=== PATIENT | male | born 1980 | race Caucasian/White ===

== ENCOUNTER → 2018-11-12 | Outpatient (CLI) | payer MEDICARE, MEDICAID ==
[~2018-11-12] MED LIST: HCT25T PO; HYDR-757 PO; TESTOSTERONE INJECT
--- NOTE | 2018-11-12 15:20 | Diagnostic Imaging Report ---
PROCEDURE: CT sinuses without contrast TECHNIQUE: Multiple contiguous axial images were obtained through the sinuses without the use of intravenous contrast. Coronal and sagittal reformations were then performed. Auto Exposure Controls were utilized during the CT exam to meet ALARA standards for radiation dose reduction. INDICATION: Left nasal mass. COMPARISON: No prior studies are available for comparison. FINDINGS: The frontal sinus is clear. Ethmoid air cells and sphenoid sinus appear clear. Bilateral maxillary sinuses are clear. No mucosal thickening or air-fluid levels are seen. Mastoids are well aerated. Nasal septum appears to be midline. There is soft tissue mass in the left anterior nasal cavity measuring approximately 19 mm x 9 mm x 23 mm. No other abnormalities are detected. IMPRESSION: Left anterior nasal soft tissue mass. No other significant abnormality is detected. Dictated by: Dictated on workstation # [id number]
== END ==
LOC: RAD 14:11
PROVIDERS: ATTEND Otolaryngology Otolaryngology/Facial Plastic Surgery
DX: J34.89 Other specified disorders of nose and nasal sinuses (principal)
CPT/HCPCS: 70486

== ENCOUNTER 2018-11-23 13:04 | Outpatient (CLI) | payer MEDICARE, MEDICAID ==
[~2018-11-23] VITALS: Ht 154.9 cm; Wt 127.7 kg
[2018-11-23] MEDS ORDERED: HYDR25TA4 PO (13:21)
[2018-11-23] MEDS ORDERED: PARO20TA5 PO (13:21)
[2018-11-23] MEDS ORDERED: MONT10TA24 PO (13:21)
[2018-11-23] MEDS ORDERED: TEST100V3 IM (13:21)
[2018-11-23 13:27] VITALS: BP 158/96
[2018-11-23 14:06] LABS: BASOPHILS # (AUTO) 0.1 10^3/uL (0.0-0.1); BASOPHILS % (AUTO) 1 % (0-10); EOSINOPHILS # (AUTO) 0.4 10^3/uL (0.0-0.3); EOSINOPHILS % (AUTO) 2 % (0-10); HEMATOCRIT 46 % (40-54); HEMOGLOBIN 15.3 G/DL (13.3-17.7); LYMPHOCYTES # (AUTO) 3.1 X 10^3 (1.0-4.0); LYMPHOCYTES % (AUTO) 20 % (12-44); MEAN CORPUSCULAR HEMOGLOBIN 27 PG (25-34); MEAN CORPUSCULAR HGB CONC 33 G/DL (32-36); MEAN CORPUSCULAR VOLUME 81 FL (80-99); MEAN PLATELET VOLUME 10.1 FL (7.4-10.4); MONOCYTES # (AUTO) 1.5 X 10^3 (0.0-1.0); MONOCYTES % (AUTO) 10 % (0-12); NEUTROPHILS # (AUTO) 10.3 X 10^3 (1.8-7.8); NEUTROPHILS % (AUTO) 67 % (42-75); PLATELET COUNT 289 10^3/uL (130-400); RED CELL DISTRIBUTION WIDTH 16.8 % (10.0-14.5); WHITE BLOOD COUNT 15.3 10^3/uL (4.3-11.0)
[2018-11-23 14:23] LABS: BUN/CREATININE RATIO 11; CALCIUM 9.7 MG/DL (8.5-10.1); CARBON DIOXIDE 20 MMOL/L (21-32); CHLORIDE 101 MMOL/L (98-107); CREATININE SERUM 0.74 MG/DL (0.60-1.30); GFR ESTIMATED > 60; GLUCOSE 92 MG/DL (70-105); POTASSIUM 3.9 MMOL/L (3.6-5.0); SODIUM 134 MMOL/L (135-145)
[2018-11-23 14:39] LABS: ANISOCYTOSIS SLIGHT; BAND NEUTROPHILS 4 %; BASOPHILS % (MANUAL) 0 %; EOSINOPHILS % (MANUAL) 3 %; LYMPHOCYTES % (MANUAL) 18 %; MONOCYTES % (MANUAL) 5 %; NEUTROPHILS % (MANUAL) 70 %
== END 2018-11-23 15:20 | disposition home or self-care (01) ==
LOC: PREOP 13:04
PROVIDERS: ATTEND Otolaryngology Otolaryngology/Facial Plastic Surgery
DX: Z01.810 Encounter for preprocedural cardiovascular examination (principal); Z01.812 Encounter for preprocedural laboratory examination; J34.89 Other specified disorders of nose and nasal sinuses
CPT/HCPCS: 36415; 80048; 85007; 85027; 87081; 93005

== ENCOUNTER 2018-11-27 06:35 | Day surgery (SDC) | payer MEDICARE, MEDICAID ==
[2018-11-27] VITALS (11 sets, daily range): BP systolic 140–186; BP diastolic 64–100
[~2018-11-27] VITALS: Ht 154.9 cm; Wt 127.7 kg
[~2018-11-27 06:35] MED LIST changes: +HYDR25TA4 PO; +MONT10TA24 PO; +PARO20TA5 PO; +TEST100V3 IM
--- OUTSIDE RECORDS SUMMARY | 2018-11-27 06:40 | XMS REPORT | Clinical Summary ---
Author Author [facility] Organization [facility] Address Unknown Phone Unavailable Care Team Providers Care Offal Roller Name Role Phone Uche Ortiz MD Unavailable No Pcp, Na PCP Unavailable Source Comments Some departments are not documenting in the electronic medical record. If you d o not see the information that you expected, contact Release of Information in [facility] Health Information Management department at [phone] for further assistan ce in locating additional records.[facility] Allergies Not on File Medications Not on file Active Problems Not on file Social History Date Tobacco Use Types Packs/Day Years Used Never Assessed Sex Assigned at Date Recorded Not on file Industry Job Start Date Occupation Not on file Not on file Not on file Travel End Travel History Travel Start No recent travel history available. Last Filed Vital Signs Not on file Plan of Treatment Health Maintenance Due Date Last Done Comments PHYSICAL (COMPREHENSIVE) 08/09/1987 EXAM HIV SCREENING 08/09/1995 DTAP/TDAP VACCINES (1998 Tdap) INFLUENZA VACCINE 01/26/2019 Results Not on filefrom Last 3 Months Advance Directives Patient Regulatory Process Manager Explanation Type Date Recorded Advance 02/14/2015 1:08 PM Directive/DPOA
--- OUTSIDE RECORDS SUMMARY | 2018-11-27 06:40 | XMS REPORT ---
Author Author Migration, Doctor Organization [facility] Address Unknown Phone Unavailable Care Team Providers Care Guide Changer Name Role Phone Migration, Doctor Unavailable Unavailable PROBLEMS Type Condition ICD9-CM Code ITL87-GQ Code Onset Dates Condition Status SNOMED Code Problem Morbid obesity due to excess calories E66.01 Active 194835013 Problem Allergic rhinitis, unspecified allergic rhinitis trigger, unspecified rhinitis seasonality J30.9 Active 05484920 Problem Hypogonadism in male E29.1 Active 67364353 Problem Irritable bowel syndrome with both constipation and diarrhea K58.2 Active 08045783 Problem Major depressive disorder with single episode, in full remission F32.5 Active 37529374 Problem Family history of diabetes mellitus Z83.3 Active 074784114 Problem 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 425648364344692 Problem Morbid obesity E66.01 Active 948271040 Problem Mild major depression, single episode F32.0 Active 37237839 ALLERGIES No Information ENCOUNTERS Encounter Location Date Diagnosis [place] [id number] [place] [address] Jul, Encounter for Medicare annual wellness exam Z00.00 ; Morbid obesity due to excess calories E66.01 ; Major depressive disorder with single episode, in full remission F32.5 and Morbid obesity E66.01 [place] [id number] [place] [address] Apr, Irritable bowel syndrome with both constipation and diarrhea K58.2 [place] [id number] [address] Mar, Actinic keratoses L57.0 [place] [id number] [place] [address] Feb, Seborrheic keratoses L82.1 [place] [id number] [place] [address] Jan, Irritable bowel syndrome with both constipation and diarrhea K58.2 ; Anal fissure K60.2 ; Encounter for immunization Z23 ; Major depressive disorder with single episode, in full remission F32.5 and Seborrheic keratoses L82.1 [facility] [id number] [id number] August, Family history of diabetes mellitus Z83.3 ; Family history of hypothyroidism Z83.49 ; Morbid obesity due to excess calories E66.01 and Hypogonadism in male E29.1 [place] [id number] [place] [address] August, Family history of diabetes mellitus Z83.3 [place] [id number] [place] [address] August, Family history of diabetes mellitus Z83.3 ; Hemangioma D18.00 ; Skin tag, acquired L91.8 ; Family history of hypothyroidism Z83.49 ; Morbid obesity due to excess calories E66.01 ; Hypogonadism in male E29.1 and Morbid obesity E66.01 [place] [id number] [place] [address] Feb, [place] [id number] [place] [address] Feb, 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 ; Morbid obesity due to excess calories E66.01 ; Family history of diabetes mellitus Z83.3 and Encounter for immunization Z23 [facility] [address] [place] [id number] Dec, Encounter for dental examination Z01.20 [facility] [id number] [place] [address] Sep, Facial nerve palsy G51.0 and Viral pharyngitis J02.9 [facility] [id number] [id number] August, Family history of diabetes mellitus Z83.3 ; Morbid obesity due to excess calories E66.01 ; Hypogonadism in male E29.1 and Pharyngitis due to other organism J02.8 [facility] [id number] [address] 11 August, 2017 Family history of diabetes mellitus Z83.3 ; Morbid obesity due to excess calories E66.01 ; Hypogonadism in male E29.1 and Pharyngitis due to other organism J02.8 [facility] [address] [id number] [id number] August, Dental examination Z01.20 [facility] [address] [facility] [id number][place] [id number] Jun, Dental examination Z01.20 [facility] [id number] [address] May, [facility] [address] [place] [address] [id number][place] [id number] May, Dental examination Z01.20 [facility] [id number] [address] Jan, [facility] [id number], [place] [id number] Jan, Hypogonadism in male E29.1 [facility] [id number] [address] Jan, Allergic rhinitis, unspecified allergic rhinitis trigger, unspecified rhinitis seasonality J30.9 ; Encounter for immunization Z23 and Hypogonadism in male E29.1 [facility] [address] [id number][place] [id number] Oct, Dental examination Z01.20 [facility] [id number] [place] [address] Jul, [facility] [id number] [place] [address] Jul, Allergic rhinitis J30.9 [facility] [id number] [place] [address] Jun, Allergic rhinitis J30.9 ; Family history of diabetes mellitus Z83.3 ; Family history of hypothyroidism Z83.49 and Hypogonadism in male E29.1 [facility] [address] [address] 12 May, 2015 Encounter for immunization Z23 [facility] [address] [facility] [id number][place] [id number] Mar, Encounter for dental examination and cleaning without abnormal findings Z01.20 and Dental examination Z01.20 [facility] [address] [address] Jan, [place] [id number] [place] [address] Jan, Encounter for immunization Z23 ; Family history of hypothyroidism Z83.49 ; Hypogonadism in male E29.1 and Family history of diabetes mellitus Z83.3 [facility] [id number] [place] [address] Jan, [facility] [id number] [place] [address] Dec, [address] [id number][place] [id number] August, Dental examination V72.2 [facility] [address] [address] Jul, [facility] [id number] [place] [address] Jul, [facility] [id number] [address] May, [address] [id number] May, [facility] [id number] [place] [address] May, [facility] [id number] [place] [address] May, [facility] [address] [id number] [place] [address] May, [facility] [place] [facility] [address] [facility] [id number] [place] [address] May, [facility] [address] [id number][place] [id number] May, [facility] [place] [facility] [address] [facility] [id number] [place] [address] May, [facility] [place] [facility] [address] [facility] [id number] [place] [address] Apr, [facility] [place] [facility] [address] [facility] [id number] [place] [address] Apr, [facility] [address] [facility] [id number] [place] [address] Apr, [facility] [place] [facility] [address] [facility] [id number] [place] [address] Jan, [facility] [place] [facility] [address] [facility] [id number] [place] [address] Jan, [facility] [place] [facility] [address] [facility] [id number] [place] [address] Oct, [facility] [place] [facility] [address] [facility] [id number] [place] [address] Oct, [facility] [place] [facility] [address] [facility] [id number] [address] Jul, [facility] [place] [facility] [address] [id number] [place] [address] Jul, [facility] [place] [facility] [address] [facility] [id number] [place] [address] Jul, [facility] [place] [facility] [address] [facility] [id number] [address] May, [facility] [place] [facility] [address] [id number] [place] [address] May, [facility] [address] [id number] [place] [address] Apr, [facility] [address] [id number] [place] [address] Apr, [facility] [address] [id number] [place] [address] Apr, [facility] [address] [id number] [place] [address] Apr, [facility] [address] [id number] [place] [address] Apr, [facility] [address] [id number][place] [id number] Mar, [facility] [address] [id number] [place] [address] Mar, [facility] [address] [id number][place] [id number] Mar, [facility] [address] [id number] [place] [address] Mar, [facility] [address] [id number] [place] [address] 16 Dec, 2012 [facility] [address] [id number] [place] [address] 13 Dec, 2012 [facility] [address] [id number] [place] [address] 10 Dec, 2012 [facility] [place] [facility] [address] [id number] [place] [address] 04 Jun, 2012 [facility] [place] [facility] [address] [id number] [place] [address] May, [facility] [address] [id number] [place] [address] May, [facility] [address] [id number] [address] May, [facility] [address] [id number] [place] [address] May, [facility] [id number] [place] [address] May, [facility] [address] [facility] [id number] [address] Mar, [facility] [address] [facility] [id number] [place] [address] Mar, [facility] [address] [id number][place] [id number] Jan, [facility] [id number] [address] Jan, [facility] [address] [id number] [address] Oct, [facility] [address] [id number] [address] Sep, [facility] [address] [id number] [address] Sep, [facility] [address] [id number] [address] Mar, [facility] [place] [facility] [address] [facility] [id number] [address] Mar, [facility] [place] [facility] [address] [facility] [id number], [place] [address] Feb, [facility] [place] [facility] [address] [facility] [id number] [address] Feb, [facility] [place] [facility] [address] [facility] [id number], [place] [address] Jan, [facility] [place] [facility] [address] [facility] [id number], [place] [address] Apr, [facility] [address] [id number] [address] Feb, [facility] [address] [id number] [address] Feb, [facility] [address] [id number] [address] Feb, [facility] [address] [id number] [address] Feb, [facility] [address] [id number] [address] Jan, IMMUNIZATIONS No Known Immunizations SOCIAL HISTORY Never Assessed REASON FOR VISIT [facility] VITAL SIGNS MEDICATIONS Unknown Medications RESULTS No Results PROCEDURES No Known procedures INSTRUCTIONS MEDICATIONS ADMINISTERED No Known Medications MEDICAL (GENERAL) HISTORY Type Description Date Medical History Prader- Willi Syndrome Medical History hypertension Surgical History tonsillectomy Surgical History appendectomy Surgical History testicle removal Surgical History dental surgery Hospitalization History surgeries Hospitalization History colon blockage
--- OUTSIDE RECORDS SUMMARY | 2018-11-27 06:40 | XMS REPORT ---
Author Author Migration, Doctor Organization [facility] Address Unknown Phone Unavailable Care Team Providers Care Box Press Operator Name Role Phone Migration, Doctor Unavailable Unavailable PROBLEMS Type Condition ICD9-CM Code [id number] Code Onset Dates Condition Status SNOMED Code Problem Morbid obesity due to excess calories E66.01 Active 619740763 Problem Allergic rhinitis, unspecified allergic rhinitis trigger, unspecified rhinitis seasonality J30.9 Active 97988190 Problem Hypogonadism in male E29.1 Active 71844938 Problem Irritable bowel syndrome with both constipation and diarrhea K58.2 Active 77432866 Problem Major depressive disorder with single episode, in full remission F32.5 Active 73884868 Problem Family history of diabetes mellitus Z83.3 Active 093762629 Problem 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 874348976613755 Problem Morbid obesity E66.01 Active 019041641 Problem Mild major depression, single episode F32.0 Active 49202631 ALLERGIES No Information ENCOUNTERS Encounter Location Date Diagnosis [place] [id number] [place] [address] August, Irritable bowel syndrome with both constipation and diarrhea K58.2 [place] [address] [place] [address] Jul, Encounter for Medicare annual wellness exam Z00.00 ; Morbid obesity due to excess calories E66.01 ; Major depressive disorder with single episode, in full remission F32.5 and Morbid obesity E66.01 [place] [address], [place] [address] Apr, Irritable bowel syndrome with both constipation and diarrhea K58.2 [facility] [address] [place] [id number] [place] [address] Mar, Actinic keratoses L57.0 [place] [address] [place] [id number] [place] [address] Feb, Seborrheic keratoses L82.1 [place] [address] [place] [id number] [place] [address] Jan, Irritable bowel syndrome with both constipation and diarrhea K58.2 ; Anal fissure K60.2 ; Encounter for immunization Z23 ; Major depressive disorder with single episode, in full remission F32.5 and Seborrheic keratoses L82.1 [facility] [id number] [place] [id number] August, Family history of diabetes mellitus Z83.3 ; Family history of hypothyroidism Z83.49 ; Morbid obesity due to excess calories E66.01 and Hypogonadism in male E29.1 [place] [address] [address] August, Family history of diabetes mellitus Z83.[address] [address] August, Family history of diabetes mellitus Z83.3 ; Hemangioma D18.00 ; Skin tag, acquired L91.8 ; Family history of hypothyroidism Z83.49 ; Morbid obesity due to excess calories E66.01 ; Hypogonadism in male E29.1 and Morbid obesity E66.01 [place] [address] [place] [id number] [place] [address] Feb, [place] [address] [address] Feb, 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1 and Pharyngitis due to other organism J02.8 [facility] [address], [place] [address] August, Family history of diabetes mellitus Z83.3 ; Morbid obesity due to excess calories E66.01 ; Hypogonadism in male E29.1 and Pharyngitis due to other organism J02.8 [place] [address] [facility] [address] [id number] [id number] August, Dental examination Z01.20 [facility] [id number] [id number] Jun, Dental examination Z01.20 [facility] [address], [place] [address] May, [address] [id number] [id number] May, Dental examination Z01.20 [facility] [address], [place] [address] Jan, [facility] [address] [id number] [id number] Jan, Hypogonadism in male E29.1 [facility] [address], [place] [address] Jan, Allergic rhinitis, unspecified allergic rhinitis trigger, unspecified rhinitis seasonality J30.9 ; Encounter for immunization Z23 and Hypogonadism in male E29.1 [place] [address] [facility] [id number][place] [id number] Oct, Dental examination Z01.20 [facility] [address], [place] [address] Jul, [facility] [address] [address] [id number] [place] [address] Jul, Allergic rhinitis J30.9 [facility] [address] [place] [address] Jun, Allergic rhinitis J30.9 ; Family history of diabetes mellitus Z83.3 ; Family history of hypothyroidism Z83.49 and Hypogonadism in male E29.1 [place] [address] [place] [id number] [place] [address] May, Encounter for immunization Z23 [address] [id number] [place] [id number] Mar, Encounter for dental examination and cleaning without abnormal findings Z01.20 and Dental examination Z01.20 [place] [address] [place] [id number] [place] [address] Jan, [place] [address] [place] [id number] [place] [address] Jan, Encounter for immunization Z23 ; Family history of hypothyroidism Z83.49 ; Hypogonadism in male E29.1 and Family history of diabetes mellitus Z83.3 [place] [address] [place] [id number] [place] [address] Jan, [place] [address] [place] [address] Dec, [id number] [place] [id number] August, Dental examination V72.2 [place] [address] [place] [address] Jul, [place] [address] [place] [id number] [place] [address] Jul, [facility] [address] [place] [address] May, [place] [id number] [place] [id number] May, [facility] [place] [facility] [address] [id number] [place] [address] May, [facility] [place] [facility] [address] [id number] [place] [address] May, [facility] [place] [facility] [address] [id number] [place] [address] May, [facility] [address] [id number] [place] [address] May, [facility] [address] [id number] [place] [id number] May, [facility] [address] [id number] [place] [address] May, [facility] [address] [facility] [id number] [place] [address] Apr, [facility] [address] [id number] [place] [address] Apr, [facility] [place] [facility] [address] [id number] [place] [address] Apr, [facility] [address] [facility] [id number] [place] [address] Jan, [facility] [place] [facility] [address] [id number] [place] [address] Jan, [facility] [place] [facility] [address] [id number], [place] [address] Oct, [facility] [place] [facility] [address] [id number] [place] [address] Oct, [facility] [place] [facility] [address] [id number] [place] [address] Jul, [facility] [place] [facility] [address] [id number] [place] [address] Jul, [facility] [place] [facility] [address] [id number], [place] [address] Jul, [facility] [place] [facility] [address] [id number] [place] [address] May, [facility] [place] [facility] [address] [id number], [place] [address] May, [facility] [place] [facility] [address] [id number] [place] [address] Apr, [facility] [place] [facility] [address] [id number], [place] [address] Apr, [facility] [place] [facility] [address] [id number] [place] [address] Apr, [facility] [place] [facility] [address] [id number], [place] [address] Apr, [facility] [address] [id number], [place] [address] Apr, [facility] [address] [facility] [id number][place] [id number] Mar, [facility] [address] [id number], [place] [address] Mar, [facility] [address] [facility] [id number][place] [id number] Mar, [facility] [place] [facility] [address] [id number], [place] [address] Mar, [facility] [place] [facility] [address] [id number], [place] [address] 16 Dec, 2012 [facility] [place] [facility] [address] [id number], [place] [address] 13 Dec, 2012 [facility] [place] [facility] [address] [id number], [place] [address] 10 Dec, 2012 [facility] [place] [facility] [address] [id number], [place] [address] 04 Jun, 2012 [facility] [place] [facility] [address] [id number], [place] [address] May, [facility] [address] [id number] [place] [address] May, [facility] [address] [place] [id number] [place] [address] May, [facility] [address] [facility] [id number] [place] [address] May, [facility] [place] [facility] [address] [place] [id number] [place] [address] May, [facility] [address] [place] [address] [id number] [place] [address] Mar, [facility] [address] [place] [address] Mar, [facility] [place] [id number] [id number] Jan, [facility] [address], [place] [address] Jan, [facility] [address] [place] [address] Oct, [facility] [address] [place] [id number], [place] [address] Sep, [facility] [address] [place] [address] [id number], [place] [address] Sep, [facility] [place] [facility] [address] [place] [address] [id number], [place] [address] Mar, [facility] [place] [facility] [address] [place] [address] [id number] [place] [address] Mar, [facility] [place] [facility] [address] [place] [address] [id number], [place] [address] Feb, [facility] [place] [facility] [address] [place] [address] [id number], [place] [address] Feb, [facility] [place] [facility] [address] [place] [id number], [place] [address] Jan, [facility] [address] [place] [address] [id number], [place] [address] Apr, [facility] [address], [place] [address] Feb, [facility] [address], [place] [address] Feb, [facility] [address], [place] [address] Feb, [facility] [address] [place] [id number], [place] [address] Feb, [facility] [address] [place] [address] [id number], [place] [address] Jan, IMMUNIZATIONS No Known Immunizations SOCIAL HISTORY Never Assessed REASON FOR VISIT [facility] [place] VITAL SIGNS MEDICATIONS Unknown Medications RESULTS No Results PROCEDURES No Known procedures INSTRUCTIONS MEDICATIONS ADMINISTERED No Known Medications MEDICAL (GENERAL) HISTORY Type Description Date Medical History Prader- Willi Syndrome Medical History hypertension Surgical History tonsillectomy Surgical History appendectomy Surgical History testicle removal Surgical History dental surgery Hospitalization History surgeries Hospitalization History colon blockage
--- OUTSIDE RECORDS SUMMARY | 2018-11-27 06:40 | XMS REPORT ---
Author Author Migration, Doctor Organization [facility] Address Unknown Phone Unavailable Care Team Providers Care Coarse Wire Drawer Name Role Phone Migration, Doctor Unavailable Unavailable PROBLEMS Type Condition ICD9-CM Code FTV72-AM Code Onset Dates Condition Status SNOMED Code Problem Morbid obesity due to excess calories E66.01 Active 237642505 Problem Allergic rhinitis, unspecified allergic rhinitis trigger, unspecified rhinitis seasonality J30.9 Active 16300044 Problem Hypogonadism in male E29.1 Active 70050586 Problem Irritable bowel syndrome with both constipation and diarrhea K58.2 Active 34554354 Problem Major depressive disorder with single episode, in full remission F32.5 Active 49565669 Problem Family history of diabetes mellitus Z83.3 Active 729724479 Problem 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 744348862671510 Problem Morbid obesity E66.01 Active 225590052 Problem Mild major depression, single episode F32.0 Active 24848092 ALLERGIES No Information ENCOUNTERS Encounter Location Date Diagnosis [place] [id number] [place] [address] Jul, Encounter for Medicare annual wellness exam Z00.00 ; Morbid obesity due to excess calories E66.01 ; Major depressive disorder with single episode, in full remission F32.5 and Morbid obesity E66.01 [place] [id number] [place] [address] Apr, Irritable bowel syndrome with both constipation and diarrhea K58.2 [place] [address] [address] Mar, Actinic keratoses L57.0 [place] [id number] [place] [address] Feb, Seborrheic keratoses L82.1 [place] [id number] [place] [address] Jan, Irritable bowel syndrome with both constipation and diarrhea K58.2 ; Anal fissure K60.2 ; Encounter for immunization Z23 ; Major depressive disorder with single episode, in full remission F32.5 and Seborrheic keratoses L82.1 [facility] [id number] [id number] August, Family history of diabetes mellitus Z83.3 ; Family history of hypothyroidism Z83.49 ; Morbid obesity due to excess calories E66.01 and Hypogonadism in male E29.1 [place] [id number] [place] [address] August, Family history of diabetes mellitus Z83.3 [place] [id number] [place] [address] August, Family history of diabetes mellitus Z83.3 ; Hemangioma D18.00 ; Skin tag, acquired L91.8 ; Family history of hypothyroidism Z83.49 ; Morbid obesity due to excess calories E66.01 ; Hypogonadism in male E29.1 and Morbid obesity E66.01 [place] [id number] [place] [address] Feb, [place] [id number] [place] [address] Feb, 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 ; Morbid obesity due to excess calories E66.01 ; Family history of diabetes mellitus Z83.3 and Encounter for immunization Z23 [facility] [address] [place] [id number] Dec, Encounter for dental examination Z01.20 [facility] [id number] [place] [address] Sep, Facial nerve palsy G51.0 and Viral pharyngitis J02.9 [facility] [id number] [id number] August, Family history of diabetes mellitus Z83.3 ; Morbid obesity due to excess calories E66.01 ; Hypogonadism in male E29.1 and Pharyngitis due to other organism J02.8 [facility] [id number] [address] 11 August, 2017 Family history of diabetes mellitus Z83.3 ; Morbid obesity due to excess calories E66.01 ; Hypogonadism in male E29.1 and Pharyngitis due to other organism J02.8 [facility] [address] [id number] [id number] August, Dental examination Z01.20 [facility] [address] [id number] [place] [id number] Jun, Dental examination Z01.20 [facility] [address], [place] [address] May, [facility] [address] [place] [address] [id number] [place] [id number] May, Dental examination Z01.20 [facility] [address], [place] [address] Jan, [facility] [id number][place] [id number] Jan, Hypogonadism in male E29.1 [facility] [address] [address] Jan, Allergic rhinitis, unspecified allergic rhinitis trigger, unspecified rhinitis seasonality J30.9 ; Encounter for immunization Z23 and Hypogonadism in male E29.1 [facility] [address] [id number] [place] [id number] Oct, Dental examination Z01.20 [facility] [address] [place] [address] Jul, [facility] [address] [place] [address] Jul, Allergic rhinitis J30.9 [facility] [id number] [place] [address] Jun, Allergic rhinitis J30.9 ; Family history of diabetes mellitus Z83.3 ; Family history of hypothyroidism Z83.49 and Hypogonadism in male E29.1 [facility] [address] [address] 12 May, 2015 Encounter for immunization Z23 [facility] [address] [facility] [id number] [place] [id number] Mar, Encounter for dental examination and cleaning without abnormal findings Z01.20 and Dental examination Z01.20 [facility] [address], [place] [address] Jan, [place] [id number] [place] [address] Jan, Encounter for immunization Z23 ; Family history of hypothyroidism Z83.49 ; Hypogonadism in male E29.1 and Family history of diabetes mellitus Z83.3 [facility] [address] [place] [address] Jan, [facility] [address] [place] [address] Dec, [address] [id number] [place] [id number] August, Dental examination V72.2 [facility] [address], [place] [address] Jul, [facility] [address] [place] [address] Jul, [facility] [address], [place] [address] May, [address] [id number] May, [facility] [address] [place] [address] May, [facility] [id number] [place] [address] May, [facility] [address] [id number] [place] [address] May, [facility] [place] [facility] [address] [facility] [id number] [place] [address] May, [facility] [address] [id number][place] [id number] May, [facility] [place] [facility] [address] [facility] [id number] [place] [address] May, [facility] [place] [facility] [address] [facility] [id number] [place] [address] Apr, [facility] [place] [facility] [address] [facility] [id number] [place] [address] Apr, [facility] [address] [facility] [id number] [place] [address] Apr, [facility] [place] [facility] [address] [facility] [id number] [place] [address] Jan, [facility] [place] [facility] [address] [facility] [id number] [place] [address] Jan, [facility] [place] [facility] [address] [facility] [id number] [place] [address] Oct, [facility] [place] [facility] [address] [facility] [id number] [place] [address] Oct, [facility] [place] [facility] [address] [facility] [id number], [place] [address] Jul, [facility] [place] [facility] [address] [id number] [place] [address] Jul, [facility] [place] [facility] [address] [facility] [id number] [place] [address] Jul, [facility] [place] [facility] [address] [facility] [id number], [place] [address] May, [facility] [place] [facility] [address] [id number] [place] [address] May, [facility] [address] [id number] [place] [address] Apr, [facility] [address] [id number] [place] [address] Apr, [facility] [address] [id number] [place] [address] Apr, [facility] [address] [id number] [place] [address] Apr, [facility] [address] [id number] [place] [address] Apr, [facility] [address] [id number] [id number] Mar, [facility] [address] [id number] [place] [address] Mar, [facility] [address] [id number][place] [id number] Mar, [facility] [address] [id number] [place] [address] Mar, [facility] [address] [id number] [place] [address] 16 Dec, 2012 [facility] [address] [id number] [place] [address] 13 Dec, 2012 [facility] [address] [id number] [place] [address] 10 Dec, 2012 [facility] [place] [facility] [address] [id number] [place] [address] 04 Jun, 2012 [facility] [place] [facility] [address] [id number] [place] [address] May, [facility] [address] [id number] [place] [address] May, [facility] [address] [id number], [place] [address] May, [facility] [address] [id number] [place] [address] May, [facility] [id number] [place] [address] May, [facility] [address] [facility] [id number], [place] [address] Mar, [facility] [address] [facility] [id number] [place] [address] Mar, [facility] [address] [id number][place] [id number] Jan, [facility] [address], [place] [address] Jan, [facility] [id number], [place] [address] Oct, [facility] [id number], [place] [address] Sep, [facility] [id number], [place] [address] Sep, [facility] [id number], [place] [address] Mar, [facility] [place] [facility] [address] [facility] [id number], [place] [address] Mar, [facility] [place] [facility] [address] [facility] [id number], [place] [address] Feb, [facility] [place] [facility] [address] [facility] [id number], [place] [address] Feb, [facility] [place] [facility] [address] [facility] [id number], [place] [address] Jan, [facility] [place] [facility] [address] [facility] [id number], [place] [address] Apr, [facility] [id number], [place] [address] Feb, [facility] [id number], [place] [address] Feb, [facility] [id number] [address] Feb, [facility] [id number], [place] [address] Feb, [facility] [id number], [place] [address] Jan, IMMUNIZATIONS No Known Immunizations SOCIAL HISTORY Never Assessed REASON FOR VISIT [facility] [place] CARE VITAL SIGNS MEDICATIONS Unknown Medications RESULTS No Results PROCEDURES No Known procedures INSTRUCTIONS MEDICATIONS ADMINISTERED No Known Medications MEDICAL (GENERAL) HISTORY Type Description Date Medical History Prader- Willi Syndrome Medical History hypertension Surgical History tonsillectomy Surgical History appendectomy Surgical History testicle removal Surgical History dental surgery Hospitalization History surgeries Hospitalization History colon blockage
--- OUTSIDE RECORDS SUMMARY | 2018-11-27 06:41 | XMS REPORT ---
Author Author Migration, Doctor Organization [facility] Address Unknown Phone Unavailable Care Team Providers Care Rod Hanger Name Role Phone Migration, Doctor Unavailable Unavailable PROBLEMS Type Condition ICD9-CM Code MPD77-MP Code Onset Dates Condition Status SNOMED Code Problem Morbid obesity due to excess calories E66.01 Active 775376441 Problem Allergic rhinitis, unspecified allergic rhinitis trigger, unspecified rhinitis seasonality J30.9 Active 15617016 Problem Hypogonadism in male E29.1 Active 22523035 Problem Irritable bowel syndrome with both constipation and diarrhea K58.2 Active 06440976 Problem Major depressive disorder with single episode, in full remission F32.5 Active 75548311 Problem Family history of diabetes mellitus Z83.3 Active 628236060 Problem 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 082393437110695 Problem Morbid obesity E66.01 Active 149577274 Problem Mild major depression, single episode F32.0 Active 78408536 ALLERGIES No Information ENCOUNTERS Encounter Location Date Diagnosis [place] [address] [address] Jul, [facility] [place] [address] [address] Apr, Irritable bowel syndrome with both constipation and diarrhea K58.2 [place] [address] [place] [id number] [place] [address] Mar, Actinic keratoses L57.0 [facility] [place] [address] [address] Feb, Seborrheic keratoses L82.1 [facility] [place] [address] [address] Jan, Irritable bowel syndrome with both constipation and diarrhea K58.2 ; Anal fissure K60.2 ; Encounter for immunization Z23 ; Major depressive disorder with single episode, in full remission F32.5 and Seborrheic keratoses L82.1 [facility] [id number] [id number] August, Family history of diabetes mellitus Z83.3 ; Family history of hypothyroidism Z83.49 ; Morbid obesity due to excess calories E66.01 and Hypogonadism in male E29.1 [place] [address] [address] August, Family history of diabetes mellitus Z83.3 [place] [address] [place] [id number] [place] [address] August, Family history of diabetes mellitus Z83.3 ; Hemangioma D18.00 ; Skin tag, acquired L91.8 ; Family history of hypothyroidism Z83.49 ; Morbid obesity due to excess calories E66.01 ; Hypogonadism in male E29.1 and Morbid obesity E66.01 [place] [address] [place] [id number] [place] [address] Feb, [place] [address] [place] [id number] [place] [address] Feb, 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 ; Morbid obesity due to excess calories E66.01 ; Family history of diabetes mellitus Z83.3 and Encounter for immunization Z23 [facility] [address] [place] [id number] [place] [id number] Dec, Encounter for dental examination Z01.20 [place] [address] [place] [id number] [place] [address] Sep, Facial nerve palsy G51.0 and Viral pharyngitis J02.9 [facility] [id number] [place] [id number] August, Family history of diabetes mellitus Z83.3 ; Morbid obesity due to excess calories E66.01 ; Hypogonadism in male E29.1 and Pharyngitis due to other organism J02.8 [place] [address] [place] [id number] [place] [address] August, Family history of diabetes mellitus Z83.3 ; Morbid obesity due to excess calories E66.01 ; Hypogonadism in male E29.1 and Pharyngitis due to other organism J02.8 [facility] [address] [place] [address] [id number] [id number] August, Dental examination Z01.20 [facility] [place] [id number] [place] [id number] Jun, Dental examination Z01.20 [facility] [place] [address] [facility] [id number], [place] [address] May, [facility] [place] [id number] RUN[place] [id number] May, Dental examination Z01.20 [facility] [place] [address], [place] [address] Jan, [facility] [id number] [id number] Jan, Hypogonadism in male E29.1 [facility] [place] [address], [place] [address] Jan, Allergic rhinitis, unspecified allergic rhinitis trigger, unspecified rhinitis seasonality J30.9 ; Encounter for immunization Z23 and Hypogonadism in male E29.[address] [id number] [place] [id number] Oct, Dental examination Z01.20 [facility] [place] [address], [place] [address] Jul, [facility] [place] [address]100[place], [place] [address] Jul, Allergic rhinitis J30.9 [facility] [place] [address] [place] [address] Jun, Allergic rhinitis J30.9 ; Family history of diabetes mellitus Z83.3 ; Family history of hypothyroidism Z83.49 and Hypogonadism in male E29.1 [facility] [place] [address], [place] [address] 12 May, 2015 [facility] immunization Z23 [facility] [place] [address] [id number] [place] [id number] Mar, Encounter for dental examination and cleaning without abnormal findings Z01.20 and Dental examination Z01.20 [facility] [place] [address] [place] [id number] [place] [address] Jan, [facility] [place] [address] [place] [id number] [place] [address] Jan, Encounter for immunization Z23 ; Family history of hypothyroidism Z83.49 ; Hypogonadism in male E29.1 and Family history of diabetes mellitus Z83.3 [facility] [place] [address] [place] [address] Jan, [facility] [place] [address] [place] [address] Dec, [facility] [place] [address] [facility] [id number] [place] [id number] August, Dental examination V72.2 [facility] [place] [address] [place] [address] Jul, [facility] [place] [address], [place] [address] Jul, [facility] [place] [address], [place] [address] May, [address] [id number] May, [facility] [place] [address] [place] [address] May, [facility] [place] [address], [place] [address] May, [facility] [place] [address] [place] [id number] [place] [address] May, [facility] [address] [id number] [place] [address] May, [facility] [address] [id number] [place] [id number] May, [facility] [address] [id number] [place] [address] May, [facility] [address] [id number] [place] [address] Apr, [facility] [address] [id number] [place] [address] Apr, [facility] [address] [id number] [place] [address] Apr, [facility] [address] [id number], [place] [address] Jan, [facility] [place] [facility] [address] [id number], [place] [address] Jan, [facility] [address] [id number], [place] [address] Oct, [facility] [place] [facility] [address] [facility] [id number], [place] [address] Oct, [facility] [place] [facility] [address] [id number], [place] [address] Jul, [facility] [place] [facility] [address] [id number], [place] [address] Jul, [facility] [place] [facility] [address] [id number] [place] [address] Jul, [facility] [place] [facility] [address] [id number], [place] [address] May, [facility] [place] [facility] [address] [id number], [place] [address] May, [facility] [place] [facility] [address] [id number], [place] [address] Apr, [facility] [address] [id number] [place] [address] Apr, [facility] [place] [facility] [address] [id number] [place] [address] Apr, [facility] [place] [facility] [address] [id number], [place] [address] Apr, [facility] [place] [facility] [address] [id number] [place] [address] Apr, [facility] [address] [facility] [id number][place] [id number] Mar, [facility] [place] [facility] [address] [facility] [id number] [place] [address] Mar, [facility] [address] [place] [id number] [id number] Mar, [facility] [place] [facility] [address] [id number], [place] [address] Mar, [facility] [place] [facility] [address] [id number], [place] [address] 16 Dec, 2012 [facility] [place] [facility] [address] [facility] [id number] [place] [address] Dec, [facility] [place] [facility] [address] [id number], [place] [address] Dec, [facility] [place] [facility] [address] [id number], [place] [address] Jun, [facility] [place] [facility] [address] [id number] [place] [address] May, [facility] [place] [facility] [address] [id number] [place] [address] May, [facility] [place] [facility] [address] [id number] [place] [address] May, [facility] [place] [facility] [address] [id number] [place] [address] May, [facility] [address] [id number] [place] [address] May, [facility] [address] [id number] [place] [address] Mar, [facility] [address] [id number] [place] [address] Mar, [facility] [address] [id number] [place] [id number] Jan, [facility] [address] [facility] [id number] [place] [address] Jan, [facility] [address] [facility] [id number] [place] [address] Oct, [facility] [address] [place] [id number] [address] Sep, [facility] [address] [id number] [place] [address] Sep, [facility] [address] [place] [id number] [place] [address] Mar, [facility] [address] [facility] [id number] [place] [address] Mar, [facility] [address] [id number] [place] [address] Feb, [facility] [place] [facility] [address] [id number] [place] [address] Feb, [facility] [place] [facility] [address] [id number] [place] [address] Jan, [facility] [place] [facility] [address] [id number] [place] [address] Apr, [facility] [place] [facility] [address] [id number] [place] [address] Feb, [facility] [place] [address] [facility] [id number], [place] [address] Feb, [facility] [place] [address] [place] [id number], [place] [address] Feb, [facility] [place] [address] [facility] [id number], [place] [address] Feb, [facility] [place] [address] [place] [id number], [place] [address] Jan, IMMUNIZATIONS No Known Immunizations SOCIAL HISTORY Never Assessed REASON FOR VISIT EMR-[facility] [place] PLAN OF CARE VITAL SIGNS MEDICATIONS Unknown Medications RESULTS No Results PROCEDURES No Known procedures INSTRUCTIONS MEDICATIONS ADMINISTERED No Known Medications MEDICAL (GENERAL) HISTORY Type Description Date Medical History Prader- Willi Syndrome Medical History hypertension Surgical History tonsillectomy Surgical History appendectomy Surgical History testicle removal Surgical History dental surgery Hospitalization History surgeries Hospitalization History colon blockage
--- OUTSIDE RECORDS SUMMARY | 2018-11-27 06:41 | XMS REPORT ---
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 Name Role Phone Migration, Doctor Unavailable Unavailable PROBLEMS Type Condition ICD9-CM Code LEL40-DV Code Onset Dates Condition Status SNOMED Code Problem Morbid obesity due to excess calories E66.01 Active 297693177 Problem Allergic rhinitis, unspecified allergic rhinitis trigger, unspecified rhinitis seasonality J30.9 Active 61014451 Problem Hypogonadism in male E29.1 Active 18146898 Problem Irritable bowel syndrome with both constipation and diarrhea K58.2 Active 17392988 Problem Major depressive disorder with single episode, in full remission F32.5 Active 41330122 Problem Family history of diabetes mellitus Z83.3 Active 262458026 Problem 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 932953708595159 Problem Morbid obesity E66.01 Active 543647027 Problem Mild major depression, single episode F32.0 Active 53539357 ALLERGIES No Information ENCOUNTERS Encounter Location Date Diagnosis [place] [id number] [place] [address] Jul, Encounter for Medicare annual wellness exam Z00.00 ; Morbid obesity due to excess calories E66.01 ; Major depressive disorder with single episode, in full remission F32.5 and Morbid obesity E66.01 [place] [address] [place] [address] Apr, Irritable bowel syndrome with both constipation and diarrhea K58.2 [place] [address] [address] Mar, Actinic keratoses L57.0 [place] [id number] [place] [address] Feb, Seborrheic keratoses L82.1 [place] [id number] [place] [address] Jan, Irritable bowel syndrome with both constipation and diarrhea K58.2 ; Anal fissure K60.2 ; Encounter for immunization Z23 ; Major depressive disorder with single episode, in full remission F32.5 and Seborrheic keratoses L82.1 [facility] [id number] [id number] August, Family history of diabetes mellitus Z83.3 ; Family history of hypothyroidism Z83.49 ; Morbid obesity due to excess calories E66.01 and Hypogonadism in male E29.1 [place] [id number] [place] [address] August, Family history of diabetes mellitus Z83.3 [place] [id number] [place] [address] August, Family history of diabetes mellitus Z83.3 ; Hemangioma D18.00 ; Skin tag, acquired L91.8 ; Family history of hypothyroidism Z83.49 ; Morbid obesity due to excess calories E66.01 ; Hypogonadism in male E29.1 and Morbid obesity E66.01 [place] [id number] [place] [address] Feb, [place] [id number] [place] [address] Feb, 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01 ; Hypogonadism in male E29.1 and Pharyngitis due to other organism J02.8 [facility] [id number] [address] 11 August, 2017 Family history of diabetes mellitus Z83.3 ; Morbid obesity due to excess calories E66.01 ; Hypogonadism in male E29.1 and Pharyngitis due to other organism J02.8 [facility] [address] [id number] [id number] August, Dental examination Z01.20 [facility] [address] [id number] [id number] Jun, Dental examination Z01.20 [facility] [address] [address] May, [facility] [address] [place] [address] [id number] [id number] May, Dental examination Z01.20 [facility] [address], [place] [address] Jan, [facility] [id number] [id number] Jan, Hypogonadism in male E29.1 [facility] [address] [address] Jan, Allergic rhinitis, unspecified allergic rhinitis trigger, unspecified rhinitis seasonality J30.9 ; Encounter for immunization Z23 and Hypogonadism in male E29.1 [facility] [address] [id number][place] [id number] Oct, Dental examination Z01.20 [facility] [address] [place] [address] Jul, [facility] [address] [place] [address] Jul, Allergic rhinitis J30.9 [facility] [id number] [place] [address] Jun, Allergic rhinitis J30.9 ; Family history of diabetes mellitus Z83.3 ; Family history of hypothyroidism Z83.49 and Hypogonadism in male E29.1 [facility] [address] [address] 12 May, 2015 Encounter for immunization Z23 [facility] [address] [facility] [id number][place] [id number] Mar, Encounter for dental examination and cleaning without abnormal findings Z01.20 and Dental examination Z01.20 [facility] [address] [address] Jan, [place] [id number] [place] [address] Jan, Encounter for immunization Z23 ; Family history of hypothyroidism Z83.49 ; Hypogonadism in male E29.1 and Family history of diabetes mellitus Z83.3 [facility] [address] [place] [address] Jan, [facility] [address] [place] [address] Dec, [address] [id number][place] [id number] August, Dental examination V72.2 [facility] [address], [place] [address] Jul, [facility] [address] [place] [address] Jul, [facility] [address], [place] [address] May, [address] [id number] May, [facility] [address] [place] [address] May, [facility] [id number] [place] [address] May, [facility] [address] [id number] [place] [address] May, [facility] [place] [facility] [address] [facility] [id number] [place] [address] May, [facility] [address] [id number][place] [id number] May, [facility] [place] [facility] [address] [facility] [id number] [place] [address] May, [facility] [place] [facility] [address] [facility] [id number] [place] [address] Apr, [facility] [place] [facility] [address] [facility] [id number] [place] [address] Apr, [facility] [address] [facility] [id number] [place] [address] Apr, [facility] [place] [facility] [address] [facility] [id number] [place] [address] Jan, [facility] [place] [facility] [address] [facility] [id number] [place] [address] Jan, [facility] [place] [facility] [address] [facility] [id number] [place] [address] Oct, [facility] [place] [facility] [address] [facility] [id number] [place] [address] Oct, [facility] [place] [facility] [address] [facility] [id number] [address] Jul, [facility] [place] [facility] [address] [id number] [place] [address] Jul, [facility] [place] [facility] [address] [facility] [id number] [place] [address] Jul, [facility] [place] [facility] [address] [facility] [id number], [place] [address] May, [facility] [place] [facility] [address] [id number] [place] [address] May, [facility] [address] [id number] [place] [address] Apr, [facility] [address] [id number] [place] [address] Apr, [facility] [address] [id number] [place] [address] Apr, [facility] [address] [id number] [place] [address] Apr, [facility] [address] [id number] [place] [address] Apr, [facility] [address] [id number][place] [id number] Mar, [facility] [address] [id number] [place] [address] Mar, [facility] [address] [id number][place] [id number] Mar, [facility] [address] [id number] [place] [address] Mar, [facility] [address] [id number] [place] [address] 16 Dec, 2012 [facility] [address] [id number] [place] [address] 13 Dec, 2012 [facility] [address] [id number] [place] [address] 10 Dec, 2012 [facility] [place] [facility] [address] [id number] [place] [address] 04 Jun, 2012 [facility] [place] [facility] [address] [id number] [place] [address] May, [facility] [address] [id number] [place] [address] May, [facility] [address] [id number], [place] [address] May, [facility] [address] [id number] [place] [address] May, [facility] [id number] [place] [address] May, [facility] [address] [facility] [id number], [place] [address] Mar, [facility] [address] [facility] [id number] [place] [address] Mar, [facility] [address] [id number][place] [id number] Jan, [facility] [address], [place] [address] Jan, [facility] [id number], [place] [address] Oct, [facility] [id number], [place] [address] Sep, [facility] [id number], [place] [address] Sep, [facility] [id number], [place] [address] Mar, [facility] [place] [facility] [address] [facility] [id number], [place] [address] Mar, [facility] [place] [facility] [address] [facility] [id number], [place] [address] Feb, [facility] [place] [facility] [address] [facility] [id number], [place] [address] Feb, [facility] [place] [facility] [address] [facility] [id number], [place] [address] Jan, [facility] [place] [facility] [address] [facility] [id number], [place] [address] Apr, [facility] [id number], [place] [address] Feb, [facility] [id number], [place] [address] Feb, [facility] [id number], [place] [address] Feb, [facility] [id number], [place] [address] Feb, [facility] [id number], [place] [address] Jan, IMMUNIZATIONS No Known Immunizations SOCIAL HISTORY Never Assessed REASON FOR VISIT [facility] [place] PLAN OF CARE [...]
--- OUTSIDE RECORDS SUMMARY | 2018-11-27 06:41 | XMS REPORT ---
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 592506464896036 Problem Family history of diabetes mellitus Z83.3 Active 221799487 Problem Mild major depression, single episode F32.0 Active 71202871 Problem Morbid obesity E66.01 Active 466651534 ALLERGIES No Known Allergies ENCOUNTERS Encounter Location Date Diagnosis [facility] [id number] [place] [address] Mar, [facility] [id number] [place] [address] Feb, Seborrheic keratoses L82.1 [facility] [address] [place] [address] Jan, Irritable bowel syndrome with both constipation and diarrhea K58.2 ; Anal fissure K60.2 ; Encounter for immunization Z23 ; Major depressive disorder with single episode, in full remission F32.5 and Seborrheic keratoses L82.1 [facility] [address] [facility] [id number] [id number] August, Family history of diabetes mellitus Z83.3 ; Family history of hypothyroidism Z83.49 ; Morbid obesity due to excess calories E66.01 and Hypogonadism in male E29.1 [place] [address] [address] August, Family history of diabetes mellitus Z83.3 [place] [address] [place] [address] August, Family history of diabetes mellitus Z83.3 ; Hemangioma D18.00 ; Skin tag, acquired L91.8 ; Family history of hypothyroidism Z83.49 ; Morbid obesity due to excess calories E66.01 ; Hypogonadism in male E29.1 and Morbid obesity E66.01 [place] [id number] [place] [address] Feb, [place] [id number] [place] [address] Feb, 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 ; Morbid obesity due to excess calories E66.01 ; Family history of diabetes mellitus Z83.3 and Encounter for immunization Z23 [facility] [address] [place] [id number] Dec, Encounter for dental examination Z01.20 [place] [address] [place] [address] 29 Sep, 2016 Facial nerve palsy G51.0 and Viral pharyngitis J02.9 [facility] [id number] [id number] August, Family history of diabetes mellitus Z83.3 ; Morbid obesity due to excess calories E66.01 ; Hypogonadism in male E29.1 and Pharyngitis due to other organism J02.8 [place] [address] [place] [address] August, Family history of diabetes mellitus Z83.3 ; Morbid obesity due to excess calories E66.01 ; Hypogonadism in male E29.1 and Pharyngitis due to other organism J02.8 [facility] [address] [facility] [facility] [address] [id number] [id number] August, Dental examination Z01.20 [facility] [address] [facility] [id number] [id number] Jun, Dental examination Z01.20 [facility] [address] [facility] [id number], [place] [address] May, [facility] [address] [facility] [address] [id number][place] [id number] May, Dental examination Z01.20 [facility] [id number], [place] [address] Jan, [facility] [address] [id number] [id number] Jan, Hypogonadism in male E29.1 [facility] [address] [address] Jan, Allergic rhinitis, unspecified allergic rhinitis trigger, unspecified rhinitis seasonality J30.9 ; Encounter for immunization Z23 and Hypogonadism in male E29.1 [facility] [address] [place], [place] [address] [id number][place] [id number] Oct, Dental examination Z01.20 [facility] [address] [id number] [address] Jul, [facility] [address] [id number], [place] [address] Jul, Allergic rhinitis J30.9 [facility] [address] [id number], [place] [address] Jun, Allergic rhinitis J30.9 ; Family history of diabetes mellitus Z83.3 ; Family history of hypothyroidism Z83.49 and Hypogonadism in male E29.1 [facility] [address] [facility] [id number], [place] [address] May, Encounter for immunization Z23 [address] [id number][place] [id number] Mar, Encounter for dental examination and cleaning without abnormal findings Z01.20 and Dental examination Z01.20 [facility] [address] [place] [address] Jan, [facility] [id number] [place] [address] Jan, Encounter for immunization Z23 ; Family history of hypothyroidism Z83.49 ; Hypogonadism in male E29.1 and Family history of diabetes mellitus Z83.3 [facility] [address] [place] [address] 16 Jan, 2015 [facility] [id number] [place] [address] Dec, [place] [id number] [id number] August, Dental examination V72.2 [facility] [address] [place] [address] Jul, [facility] [id number] [place] [address] Jul, [facility] [id number] [place] [address] May, [facility] [address] [place] [id number] May, [facility] [id number] [place] [address] May, [facility] [id number] [place] [address] May, [facility] [id number] [place] [address] May, [facility] [id number] [place] [address] May, [facility] [id number] [place] [id number] May, [facility] [place] [facility] [address] [id number] [place] [address] May, [facility] [place] [facility] [address] [id number] [place] [address] Apr, [facility] [place] [facility] [address] [id number] [place] [address] Apr, [facility] [place] [facility] [address] [id number] [place] [address] Apr, [facility] [place] [facility] [address] [id number] [place] [address] Jan, [facility] [place] [facility] [address] [id number] [place] [address] Jan, [facility] [place] [facility] [address] [id number] [place] [address] Oct, [facility] [place] [facility] [address] [id number] [place] [address] Oct, [facility] [place] [facility] [address] [id number] [place] [address] Jul, [facility] [place] [facility] [address] [id number] [place] [address] Jul, [facility] [place] [facility] [address] [id number] [place] [address] Jul, [facility] [place] [facility] [address] [id number], [place] [address] May, [facility] [place] [facility] [address] [id number] [place] [address] May, [facility] [place] [facility] [address] [id number] [place] [address] Apr, [facility] [place] [facility] [address] [id number] [place] [address] Apr, [facility] [place] [facility] [address] [facility] [id number], [place] [address] Apr, [facility] [address] [facility] [id number], [place] [address] Apr, [facility] [address] [facility] [id number], [place] [address] Apr, [facility] [address] [id number] [id number] Mar, [facility] [address] [facility] [id number], [place] [address] Mar, [facility] [address] [facility] [id number] [place] [id number] Mar, [facility] [id number], [place] [address] Mar, [facility] [address], [place] [address] 16 Dec, 2012 [facility] [address], [place] [address] Dec, [facility] [address], [place] [address] Dec, [facility] [id number], [place] [address] Jun, [facility] [address] [id number], [place] [address] May, [facility] [place] [facility] [address] [id number], [place] [address] May, [facility] [place] [facility] [address] [id number], [place] [address] May, [facility] [place] [facility] [address] [facility] [id number], [place] [address] May, [facility] [place] [facility] [address] [id number], [place] [address] May, [facility] [place] [facility] [address] [id number] [place] [address] Mar, [facility] [address] [id number] [place] [address] Mar, [facility] [address] [id number] [place] [id number] Jan, [facility] [address] [id number] [place] [address] Jan, [facility] [address] [id number] [place] [address] Oct, [facility] [address] [id number] [place] [address] Sep, [facility] [address] [id number] [place] [address] Sep, [facility] [address] [id number] [place] [address] Mar, [facility] [address] [id number] [place] [address] Mar, [facility] [address] [id number] [place] [address] Feb, [facility] [address] [id number] [place] [address] Feb, [facility] [address] [id number] [place] [address] Jan, [facility] [place] [facility] [address] [id number] [place] [address] Apr, [facility] [place] [facility] [address] [id number] [place] [address] Feb, [facility] [place] [facility] [address] [id number] [place] [address] Feb, [facility] [place] [facility] [address] [id number] [place] [address] Feb, [facility] [address] [facility] [id number] [place] [address] Feb, [facility] [address] [facility] [id number] [place] [address] Jan, IMMUNIZATIONS No Known Immunizations SOCIAL HISTORY Never Assessed REASON FOR VISIT Cyst Removal, right shoulder -Agustin MA, increase Testostrone 10 PLAN OF CARE Activity Details Future/Pending Procedure CRYOTHERAPY OF SKIN VITAL SIGNS Height 61 in 2018-03-17 Weight 267 lbs 2018-03-17 Temperature 98.8 degrees Fahrenheit 2018-03-17 Heart Rate 93 bpm 2018-03-17 Respiratory Rate 2018-03-17 BMI 50.44 kg/m2 2018-03-17 Blood pressure systolic 142 mmHg 2018-03-17 Blood pressure diastolic 70 mmHg 2018-03-17 MEDICATIONS Medication Instructions Dosage Frequency Start Date End Date Duration Status Syringe/Needle (Disp) 22G X 1-1/2 use to give testosterone injections Feb, Active Syringe 2-3 ML 3 ML as directed Jun, Active Guaifenesin 400 mg Orally every 4 hrs 1 tablet as needed 4h Feb, Active Paroxetine HCl 20 mg 1 tablet in the morning 24h Active Hydrochlorothiazide 25 MG TAKE ONE TABLET BY MOUTH ONCE DAILY 90 Active MiraLax - Orally Once a day 1 packet mixed with 8 ounces of fluid 24h Jan, Feb, 30 day(s) Active Proctosol HC 2.5 % Rectal Twice a day 1 application to affected area 12h Jan, Feb, 30 day(s) Active Depo-Testosterone 200 MG/ML Intramuscular once monthly 1 ml August, Active Singulair 10 mg 1 tablet 24h May, Active RESULTS No Results PROCEDURES Procedure Date Ordered Result Body Site CRYOTHERAPY OF SKIN Mar 17, 2018 [facility] VISIT ESTABLISHED PATIENT Mar 17, 2018 INSTRUCTIONS MEDICATIONS ADMINISTERED No Known Medications MEDICAL (GENERAL) HISTORY Type Description Date Medical History Prader- Willi Syndrome Medical History hypertension Surgical History tonsillectomy Surgical History appendectomy Surgical History testicle removal Surgical History dental surgery Hospitalization History surgeries Hospitalization History colon blockage
--- OUTSIDE RECORDS SUMMARY | 2018-11-27 06:41 | XMS REPORT ---
Author Author Migration, Doctor Organization [facility] Address Unknown Phone Unavailable Care Team Providers Care Concrete [employer]ber Name Role Phone Migration, Doctor Unavailable Unavailable PROBLEMS Type Condition ICD9-CM Code YXD64-AT Code Onset Dates Condition Status SNOMED Code Problem Morbid obesity due to excess calories E66.01 Active 066222014 Problem Allergic rhinitis, unspecified allergic rhinitis trigger, unspecified rhinitis seasonality J30.9 Active 53733521 Problem Hypogonadism in male E29.1 Active 78007925 Problem Irritable bowel syndrome with both constipation and diarrhea K58.2 Active 23398127 Problem Major depressive disorder with single episode, in full remission F32.5 Active 05398084 Problem Family history of diabetes mellitus Z83.3 Active 209402321 Problem 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 575672613319146 Problem Morbid obesity E66.01 Active 086615879 Problem Mild major depression, single episode F32.0 Active 72900722 ALLERGIES No Information ENCOUNTERS Encounter Location Date Diagnosis [place] [id number] [place] [address] Jul, Encounter for Medicare annual wellness exam Z00.00 ; Morbid obesity due to excess calories E66.01 ; Major depressive disorder with single episode, in full remission F32.5 and Morbid obesity E66.01 [place] [id number] [place] [address] Apr, Irritable bowel syndrome with both constipation and diarrhea K58.2 [place] [address], [place] [address] Mar, Actinic keratoses L57.0 [place] [id number] [place] [address] Feb, Seborrheic keratoses L82.1 [place] [id number] [place] [address] Jan, Irritable bowel syndrome with both constipation and diarrhea K58.2 ; Anal fissure K60.2 ; Encounter for immunization Z23 ; Major depressive disorder with single episode, in full remission F32.5 and Seborrheic keratoses L82.1 [facility] [id number] [id number] August, Family history of diabetes mellitus Z83.3 ; Family history of hypothyroidism Z83.49 ; Morbid obesity due to excess calories E66.01 and Hypogonadism in male E29.1 [place] [id number] [place] [address] August, Family history of diabetes mellitus Z83.3 [place] [id number] [place] [address] August, Family history of diabetes mellitus Z83.3 ; Hemangioma D18.00 ; Skin tag, acquired L91.8 ; Family history of hypothyroidism Z83.49 ; Morbid obesity due to excess calories E66.01 ; Hypogonadism in male E29.1 and Morbid obesity E66.01 [place] [id number] [place] [address] Feb, [place] [id number] [place] [address] Feb, 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 ; Morbid obesity due to excess calories E66.01 ; Family history of diabetes mellitus Z83.3 and Encounter for immunization Z23 [facility] [address] [place] [id number] Dec, Encounter for dental examination Z01.20 [facility] [id number] [place] [address] Sep, Facial nerve palsy G51.0 and Viral pharyngitis J02.9 [facility] [id number] [id number] August, Family history of diabetes mellitus Z83.3 ; Morbid obesity due to excess calories E66.01 ; Hypogonadism in male E29.1 and Pharyngitis due to other organism J02.8 [facility] [id number] [address] 11 August, 2017 Family history of diabetes mellitus Z83.3 ; Morbid obesity due to excess calories E66.01 ; Hypogonadism in male E29.1 and Pharyngitis due to other organism J02.8 [facility] [address] [id number] [id number] August, Dental examination Z01.20 [facility] [address] [facility] [id number] [place] [id number] Jun, Dental examination Z01.20 [facility] [address], [place] [address] May, [facility] [address] [place] [address] [id number] [id number] May, Dental examination Z01.20 [facility] [address], [place] [address] Jan, [facility] [id number] [id number] Jan, Hypogonadism in male E29.1 [facility] [address], [place] [address] Jan, Allergic rhinitis, unspecified allergic rhinitis trigger, unspecified rhinitis seasonality J30.9 ; Encounter for immunization Z23 and Hypogonadism in male E29.1 [facility] [address] [id number] [place] [id number] Oct, Dental examination Z01.20 [facility] [address] [place] [address] Jul, [facility] [address] [place] [address] Jul, Allergic rhinitis J30.9 [facility] [id number] [place] [address] Jun, Allergic rhinitis J30.9 ; Family history of diabetes mellitus Z83.3 ; Family history of hypothyroidism Z83.49 and Hypogonadism in male E29.1 [facility] [address], [place] [address] 12 May, 2015 Encounter for immunization Z23 [facility] [address] [facility] [id number] [place] [id number] Mar, Encounter for dental examination and cleaning without abnormal findings Z01.20 and Dental examination Z01.20 [facility] [address], [place] [address] Jan, [place] [id number] [place] [address] Jan, Encounter for immunization Z23 ; Family history of hypothyroidism Z83.49 ; Hypogonadism in male E29.1 and Family history of diabetes mellitus Z83.3 [facility] [address] [place] [address] Jan, [facility] [address] [place] [address] Dec, [address] [id number] [place] [id number] August, Dental examination V72.2 [facility] [address], [place] [address] Jul, [facility] [address] [place] [address] Jul, [facility] [address], [place] [address] May, [address] [id number] May, [facility] [address] [place] [address] May, [facility] [address] [id number] [place] [address] May, [facility] [address] [id number] [place] [address] May, [facility] [place] [facility] [address] [facility] [id number] [place] [address] May, [facility] [address] [id number] [id number] May, [facility] [place] [facility] [address] [facility] [id number] [place] [address] May, [facility] [place] [facility] [address] [facility] [id number] [place] [address] Apr, [facility] [place] [facility] [address] [facility] [id number] [place] [address] Apr, [facility] [address] [facility] [id number] [place] [address] Apr, [facility] [place] [facility] [address] [facility] [id number] [place] [address] Jan, [facility] [place] [facility] [address] [facility] [id number] [place] [address] Jan, [facility] [place] [facility] [address] [facility] [id number] [place] [address] Oct, [facility] [place] [facility] [address] [facility] [id number] [place] [address] Oct, [facility] [place] [facility] [address] [facility] [id number], [place] [address] Jul, [facility] [place] [facility] [address] [id number] [place] [address] Jul, [facility] [place] [facility] [address] [facility] [id number] [place] [address] Jul, [facility] [place] [facility] [address] [facility] [id number], [place] [address] May, [facility] [place] [facility] [address] [id number] [place] [address] May, [facility] [address] [id number] [place] [address] Apr, [facility] [address] [id number] [place] [address] Apr, [facility] [address] [id number] [place] [address] Apr, [facility] [address] [id number] [place] [address] Apr, [facility] [address] [id number] [place] [address] Apr, [facility] [address] [id number] [id number] Mar, [facility] [address] [id number] [place] [address] Mar, [facility] [address] [id number] [id number] Mar, [facility] [address] [id number] [place] [address] Mar, [facility] [address] [id number] [place] [address] 16 Dec, 2012 [facility] [address] [id number] [place] [address] 13 Dec, 2012 [facility] [address] [id number] [place] [address] 10 Dec, 2012 [facility] [place] [facility] [address] [id number] [place] [address] 04 Jun, 2012 [facility] [place] [facility] [address] [id number] [place] [address] May, [facility] [address] [id number] [place] [address] May, [facility] [address] [id number], [place] [address] May, [facility] [address] [id number] [place] [address] May, [facility] [id number] [place] [address] May, [facility] [address] [facility] [id number], [place] [address] Mar, [facility] [address] [facility] [id number] [place] [address] Mar, [facility] [address] [id number] [id number] Jan, [facility] [address], [place] [address] Jan, [facility] [id number], [place] [address] Oct, [facility] [id number], [place] [address] Sep, [facility] [id number], [place] [address] Sep, [facility] [id number], [place] [address] Mar, [facility] [place] [facility] [address] [facility] [id number], [place] [address] Mar, [facility] [place] [facility] [address] [facility] [id number], [place] [address] Feb, [facility] [place] [facility] [address] [facility] [id number], [place] [address] Feb, [facility] [place] [facility] [address] [facility] [id number], [place] [address] Jan, [facility] [place] [facility] [address] [facility] [id number], [place] [address] 10 Apr, 2010 [facility] [address] [facility] [id number], [place] [address] Feb, [facility] [address] [facility] [id number], [place] [address] Feb, [facility] [address] [facility] [id number], [place] [address] Feb, [facility] [address] [facility] [id number], [place] [address] 08 Feb, 2010 [facility] [address] [facility] [id number], [place] [address] Jan, IMMUNIZATIONS No Known Immunizations SOCIAL HISTORY Never Assessed [place]ON FOR [place] [facility] [place] C[place] VITAL SIGNS MEDICATIONS Medication Instructions Dosage Frequency Start Date End Date Duration Status Nasonex 50 mcg/actuation 1 sprays by Nasal route 2 times per day in each nostril Jul, Active PredniSONE 20 mg 2 tablet by Oral route 1 time per day for 5 day(s) May, Active Ciprofloxacin HCl 500 mg 1 tablet by Oral route every 12 hours for 5 day(s) Apr, Active Pyridium 100 mg 1 tablet by Oral route 3 times per day for 3 day(s) PRN take with meals for painful urination Apr, Active Cipro 500 mg 1 tablet by Oral route every 12 hours for 5 day(s) Mar, Active Singulair 10 mg 1 tablet by Oral route 1 time per day May, Active Hydrochlorothiazide 25 mg 1 tablet by Oral route 1 time per day May, Active Depo-Testosterone 200 mg/mL inject 1 milliliters by Intramuscular route every 4 weeks May, Active cetirizine 10 mg 1 tablet by Oral route 1 daily Apr, Active RESULTS No Results PROCEDURES No Known procedures INSTRUCTIONS MEDICATIONS ADMINISTERED No Known Medications MEDICAL (GENERAL) HISTORY Type Description Date Medical History Prader- Willi Syndrome Medical History hypertension Surgical History tonsillectomy Surgical History appendectomy Surgical History testicle removal Surgical History dental surgery Hospitalization History surgeries Hospitalization History colon blockage
--- OUTSIDE RECORDS SUMMARY | 2018-11-27 06:42 | XMS REPORT ---
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 235849625801750 Problem Hypogonadism in male E29.1 Active 90066023 Problem Family history of diabetes mellitus V18.0 Active 379136925 Problem Family history of diabetes mellitus Z83.3 Active 327426407 Problem Allergic rhinitis, unspecified allergic rhinitis trigger, unspecified rhinitis seasonality J30.9 Active 26686683 ALLERGIES No Known Allergies ENCOUNTERS Encounter Location Date Diagnosis [facility] [address] [facility] [id number][place] [id number] August, Family history of diabetes mellitus Z83.3 ; Family history of hypothyroidism Z83.49 ; Morbid obesity due to excess calories E66.01 and Hypogonadism in male E29.1 [place] [address] [facility] [id number], [place] [address] August, Family history of diabetes mellitus Z83.3 [facility] [address] [id number], [place] [address] August, Family history of diabetes mellitus Z83.3 ; Hemangioma D18.00 ; Skin tag, acquired L91.8 ; Family history of hypothyroidism Z83.49 ; Morbid obesity due to excess calories E66.01 ; Hypogonadism in male E29.1 and Morbid obesity E66.01 [facility] [address] [facility] [id number], [place] [address] Feb, [place] [address] [id number], [place] [address] Feb, 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 ; Morbid obesity due to excess calories E66.01 ; Family history of diabetes mellitus Z83.3 and Encounter for immunization Z23 [facility] [address] [facility] [id number], [place] [address] Dec, Encounter for dental examination Z01.20 [facility] [address] [id number], [place] [address] Sep, Facial nerve palsy G51.0 and Viral pharyngitis J02.9 [facility] [address] [id number][place] [address] August, Family history of diabetes mellitus Z83.3 ; Morbid obesity due to excess calories E66.01 ; Hypogonadism in male E29.1 and Pharyngitis due to other organism J02.8 [facility] [address] [id number], [place] [address] August, Family history of diabetes mellitus Z83.3 ; Morbid obesity due to excess calories E66.01 ; Hypogonadism in male E29.1 and Pharyngitis due to other organism J02.[address] [facility] [address] [id number][place] [id number] August, Dental examination Z01.20 [facility] [address] [id number][place] [address] Jun, Dental examination Z01.20 [facility] [address] [facility] [id number], [place] [address] May, [facility] [address] [id number][place] [id number] May, Dental examination Z01.20 [facility] [address] [facility] [id number], [place] [address] Jan, [facility] [address] [id number], [place] [id number] Jan, Hypogonadism in male E29.1 [facility] [address] [id number], [place] [address] Jan, Allergic rhinitis, unspecified allergic rhinitis trigger, unspecified rhinitis seasonality J30.9 ; Encounter for immunization Z23 and Hypogonadism in male E29.1 [place] [address] [facility] [address] [id number][place] [address] Oct, Dental examination Z01.20 [place] [address]00565100[place], [place] [address] Jul, [place] [address] [place] [id number] [place] [address] Jul, Allergic rhinitis J30.9 [place] [address]00565100[place], [place] [address] Jun, Allergic rhinitis J30.9 ; Family history of diabetes mellitus Z83.3 ; Family history of hypothyroidism Z83.49 and Hypogonadism in male E29.1 [place] [address]00565100[place], [place] [address] May, Encounter for immunization Z23 [address] [id number][place] [address] Mar, Encounter for dental examination and cleaning without abnormal findings Z01.20 and Dental examination Z01.20 [place] [address] [address] [id number], [place] [address] Jan, [place] [address]00565100[place], [place] [address] Jan, Encounter for immunization Z23 ; Family history of hypothyroidism Z83.49 ; Hypogonadism in male E29.1 and Family history of diabetes mellitus Z83.3 [place] [address]00565100[place], [place] [address] Jan, [place] [address] [address] [id number], [place] [address] Dec, [address] [id number][place] [address] August, Dental examination V72.2 [facility] [address]00565100[place], [place] [address] Jul, [facility] [place] [facility] [address]00565100[place], [place] [address] Jul, [facility] [address]00565100[place], [place] [address] May, [facility] [address]00565100[place] [address] May, [facility] [address]00565100[place], [place] [address] May, [facility] [address]00565100[place], [place] [address] May, [facility] [address]00565100[place], [place] [address] May, [facility] [address]00565100[place], [place] [address] May, [facility] [address]00565100[place], [place] [address] May, [facility] [address]00565100[place], [place] [address] May, [facility] [place] [facility] [address]00565100[place], [place] [address] Apr, [facility] [place] [facility] [address]00565100[place], [place] [address] Apr, [facility] [place] [facility] [address] [id number], [place] [address] Apr, [facility] [place] [facility] [address]00565100[place], [place] [address] Jan, [facility] [place] [facility] [address] [id number], [place] [address] Jan, [facility] [address] [id number] [place] [address] Oct, [facility] [place] [facility] [address] [id number] [place] [address] Oct, [facility] [place] [facility] [address] [id number] [place] [address] Jul, [facility] [place] [facility] [address] [id number] [place] [address] Jul, [facility] [place] [facility] [address] [id number] [place] [address] Jul, [facility] [place] [facility] [address] [id number] [place] [address] May, [facility] [place] [facility] [address] [id number] [place] [address] May, [facility] [place] [facility] [address] [id number] [place] [address] Apr, [facility] [place] [facility] [address] [id number] [place] [address] Apr, [facility] [place] [facility] [address] [id number], [place] [address] Apr, [facility] [place] [facility] [address] [id number], [place] [address] Apr, [facility] [place] [facility] [address] [id number], [place] [address] Apr, [facility] [address] [id number][place] [address] Mar, [facility] [place] [facility] [address] [id number], [place] [address] Mar, [facility] [address] [id number], [place] [address] Mar, [facility] [place] [facility] [address] [id number], [place] [address] 12 Mar, 2013 [facility] [address] [id number] [place] [address] 16 Dec, 2012 [facility] [address] [id number] [place] [address] 13 Dec, 2012 [facility] [address] [facility] [id number] [place] [address] 10 Dec, 2012 [facility] [address] [id number] [place] [address] 04 Jun, 2012 [facility] [address] [id number] [place] [address] May, [facility] [address] [id number] [place] [address] May, [facility] [address] [id number] [place] [address] May, [facility] [address] [id number], [place] [address] May, [facility] [address] [id number], [place] [address] May, [facility] [address] [facility] [id number], [place] [address] Mar, [facility] [address] [id number], [place] [address] Mar, [facility] [address] [id number][place] [address] Jan, [facility] [address] [facility] [id number], [place] [address] Jan, [facility] [address] [facility] [id number], [place] [address] Oct, [facility] [place] [facility] [address] [facility] [id number], [place] [address] Sep, [facility] [address] [id number], [place] [address] 05 Sep, 2011 [facility] [address]00565100[place], [place] [address] Mar, [facility] [address]00565[address], [place] [address] Mar, [facility] [address]00565100[place], [place] [address] Feb, [facility] [address]00565100[place], [place] [address] Feb, [facility] [address] [place] [address] Jan, [facility] [address] [place] [address] Apr, [facility] [address] [place] [address] Feb, [facility] [address]65[address], [place] [address] Feb, [facility] [address]65[address], [place] [address] Feb, [facility] [address]65[address], [place] [address] Feb, [facility] [address], [place] [address] Jan, IMMUNIZATIONS No Known Immunizations SOCIAL HISTORY Never Assessed REASON FOR VISIT Hypertension-Jayme ORTIZ PLAN OF CARE VITAL SIGNS Height 61 in 2017-09-01 Weight 270.1 lbs 2017-09-01 Temperature 99.2 degrees Fahrenheit 2017-09-01 Heart Rate 84 bpm 2017-09-01 Respiratory Rate 22 2017-09-01 BMI 51.03 kg/m2 2017-09-01 Blood pressure systolic 130 mmHg 2017-09-01 Blood pressure diastolic 92 mmHg 2017-09-01 MEDICATIONS Medication Instructions Dosage Frequency Start Date End Date Duration Status Syringe/Needle (Disp) 22G X 1-1/2" 3 ML use to give testosterone injections Feb, Active Paroxetine HCl 20 mg 1 tablet in the morning 24h Active Singulair 10 mg 1 tablet 24h May, Active Syringe 2-3 ML 3 ML as directed Jun, Active Depo-Testosterone 200 MG/ML Intramuscular once monthly 1 ml August, Active Hydrochlorothiazide 25 MG 1 tablet in the morning 24h 90 Active RESULTS No Results PROCEDURES Procedure Date Ordered Result Body Site [facility] VISIT ESTABLISHED PATIENT September 01, 2017 INSTRUCTIONS MEDICATIONS ADMINISTERED No Known Medications MEDICAL (GENERAL) HISTORY Type Description Date Medical History Prader- Willi Syndrome Medical History hypertension Surgical History tonsillectomy Surgical History appendectomy Surgical History testicle removal Surgical History dental surgery Hospitalization History surgeries Hospitalization History colon blockage
--- OUTSIDE RECORDS SUMMARY | 2018-11-27 06:42 | XMS REPORT ---
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 [id number][place] [address] August, Family history of diabetes mellitus Z83.3 ; Family history of hypothyroidism Z83.49 ; Morbid obesity due to excess calories E66.01 and Hypogonadism in male E29.1 [place] [address] [facility] [id number], [place] [address] August, Family history of diabetes mellitus Z83.3 [facility] [address] [address] [id number], [place] [address] August, Family history of diabetes mellitus Z83.3 ; Hemangioma D18.00 ; Skin tag, acquired L91.8 ; Family history of hypothyroidism Z83.49 ; Morbid obesity due to excess calories E66.01 ; Hypogonadism in male E29.1 and Morbid obesity E66.01 [facility] [address] [facility] [id number], [place] [address] Feb, [place] [address]00565[address], [place] [address] Feb, 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 ; Morbid obesity due to excess calories E66.01 ; Family history of diabetes mellitus Z83.3 and Encounter for immunization Z23 [facility] [address] [facility] [id number][place] [address] Dec, Encounter for dental examination Z01.20 [facility] [address] [id number], [place] [address] Sep, Facial nerve palsy G51.0 and Viral pharyngitis J02.9 [facility] [address] [id number][place] [address] August, Family history of diabetes mellitus Z83.3 ; Morbid obesity due to excess calories E66.01 ; Hypogonadism in male E29.1 and Pharyngitis due to other organism J02.8 [facility] [address] [address] [id number], [place] [address] August, Family history of diabetes mellitus Z83.3 ; Morbid obesity due to excess calories E66.01 ; Hypogonadism in male E29.1 and Pharyngitis due to other organism J02.8 [facility] [address] [id number] [address] August, Dental examination Z01.[address] [place] [place] [address] [id number], [place] [address] Jun, Dental examination Z01.20 [facility] [address] [facility] [id number], [place] [address] May, [facility] [address] [id number], [place] [address] May, Dental examination Z01.20 [facility] [address] [facility] [id number], [place] [address] Jan, [facility] [address] [id number], [place] [address] Jan, Hypogonadism in male E29.1 [place] [address] [place] [id number], [place] [address] Jan, Allergic rhinitis, unspecified allergic rhinitis trigger, unspecified rhinitis seasonality J30.9 ; Encounter for immunization Z23 and Hypogonadism in male E29.[address] [id number][place] [address] Oct, Dental examination Z01.20 [place] [address] [place] [address] Jul, [place] [address] [place] [id number] [place] [address] Jul, Allergic rhinitis J30.9 [place] [address] [place] [address] Jun, Allergic rhinitis J30.9 ; Family history of diabetes mellitus Z83.3 ; Family history of hypothyroidism Z83.49 and Hypogonadism in male E29.1 [place] [address]00565100[place], [place] [address] May, Encounter for immunization Z23 [address] [id number], [place] [address] Mar, Encounter for dental examination and cleaning without abnormal findings Z01.20 and Dental examination Z01.20 [place] [address]00565100[place], [place] [address] Jan, [place] [address] [place] [address] Jan, Encounter for immunization Z23 ; Family history of hypothyroidism Z83.49 ; Hypogonadism in male E29.1 and Family history of diabetes mellitus Z83.3 [place] [address]00565100[place], [place] [address] Jan, [place] [address]00565100[place], [place] [address] Dec, [address] [id number], [place] [address] August, Dental examination V72.2 [facility] [address]00565100[place], [place] [address] Jul, [facility] [place] [facility] [address]00565100[place], [place] [address] Jul, [facility] [address]00565100[place], [place] [address] May, [facility] [address]005[address], [place] [address] May, [facility] [address]00565100[place], [place] [address] May, [facility] [address] [id number], [place] [address] May, [facility] [address]00565100[place], [place] [address] May, [facility] [address]00565100[place], [place] [address] May, [facility] [address]00565[place], [place] [address] May, [facility] [address] [id number], [place] [address] May, [facility] [address]00565100[place], [place] [address] Apr, [facility] [address] [id number], [place] [address] Apr, [facility] [place] [facility] [address]00565100[place], [place] [address] Apr, [facility] [place] [facility] [address]00565100[place], [place] [address] Jan, [facility] [place] [facility] [address] [id number], [place] [address] Jan, [facility] [address] [id number] [place] [address] Oct, [facility] [place] [facility] [address] [id number] [place] [address] Oct, [facility] [place] [facility] [address] [id number] [place] [address] Jul, [facility] [place] [facility] [address] [id number] [place] [address] Jul, [facility] [place] [facility] [address] [id number] [place] [address] Jul, [facility] [place] [facility] [address] [id number] [place] [address] May, [facility] [place] [facility] [address] [id number] [place] [address] May, [facility] [place] [facility] [address] [id number] [place] [address] Apr, [facility] [place] [facility] [address] [id number] [place] [address] Apr, [facility] [place] [facility] [address] [id number], [place] [address] Apr, [facility] [place] [facility] [address] [id number], [place] [address] Apr, [facility] [place] [facility] [address] [id number], [place] [address] Apr, [facility] [address] [id number], [place] [address] Mar, [facility] [place] [facility] [address] [id number] [place] [address] Mar, [facility] [address] [facility] [id number], [place] [address] Mar, [facility] [place] [facility] [address] [id number], [place] [address] 12 Mar, 2013 [facility] [address] [id number] [place] [address] 16 Dec, 2012 [facility] [place] [facility] [address] [id number] [place] [address] 13 Dec, 2012 [facility] [address] [id number] [place] [address] 10 Dec, 2012 [facility] [place] [facility] [address] [id number] [place] [address] 04 Jun, 2012 [facility] [address] [id number] [place] [address] May, [facility] [place] [facility] [address] [id number] [place] [address] 25 May, 2012 [facility] [address] [id number] [place] [address] May, [facility] [address] [id number] [place] [address] 05 May, 2012 [facility] [address] [id number], [place] [address] May, [facility] [address] [facility] [id number] [place] [address] Mar, [facility] [address] [id number], [place] [address] Mar, [facility] [address] [id number][place] [address] Jan, [facility] [address] [id number] [place] [address] Jan, [facility] [place] [facility] [address] [facility] [id number], [place] [address] Oct, [facility] [place] [facility] [address] [id number], [place] [address] Sep, [facility] [address] [id number] [address] 05 Sep, 2011 [facility] [id number] [address] Mar, [facility] [id number] [address] Mar, [facility] [id number] [address] Feb, [facility] [id number] [address] Feb, [facility] [id number], [place] [address] Jan, [facility] [id number], [place] [address] Apr, [facility] [id number], [place] [address] Feb, [facility] [id number], [place] [address] Feb, [facility] [id number], [place] [address] Feb, [facility] [id number], [place] [address] Feb, [facility] [address] [id number], [place] [address] Jan, IMMUNIZATIONS No Known Immunizations SOCIAL HISTORY Never Assessed REASON FOR VISIT NEEDING RX PLAN OF CARE VITAL SIGNS MEDICATIONS Medication Instructions Dosage Frequency Start Date End Date Duration Status Depo-Testosterone 200 MG/ML Intramuscular once monthly 1 ml August, Active RESULTS No Results PROCEDURES No Known procedures INSTRUCTIONS MEDICATIONS ADMINISTERED No Known Medications MEDICAL (GENERAL) HISTORY Type Description Date Medical History Prader- Willi Syndrome Medical History hypertension Surgical History tonsillectomy Surgical History appendectomy Surgical History testicle removal Surgical History dental surgery Hospitalization History surgeries Hospitalization History colon blockage
--- OUTSIDE RECORDS SUMMARY | 2018-11-27 06:42 | XMS REPORT ---
Author Author MIKE GRAY Organization [facility] Address [address] [place] [address] Care Team Providers Care Housing Counselor Name Role Phone MIKE GRAY Unavailable PROBLEMS Type Condition ICD9-CM Code PUX29-GL Code Onset Dates Condition Status SNOMED Code Problem Morbid obesity due to excess calories E66.01 Active 540983889 Problem Hypogonadism in male E29.1 Active 78240848 Problem Allergic rhinitis, unspecified allergic rhinitis trigger, unspecified rhinitis seasonality J30.9 Active 62022653 Problem Major depressive disorder with single episode, in full remission F32.5 Active 34106768 Problem Irritable bowel syndrome with both constipation and diarrhea K58.2 Active 21518208 Problem 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 164354304867176 Problem Family history of diabetes mellitus Z83.3 Active 453252822 Problem Mild major depression, single episode F32.0 Active 93353820 Problem Morbid obesity E66.01 Active 706680246 ALLERGIES No Known Allergies ENCOUNTERS Encounter Location Date Diagnosis [facility] [id number] [place] [address] Feb, [facility] [id number] [place] [address] Jan, Irritable bowel syndrome with both constipation and diarrhea K58.2 ; Anal fissure K60.2 ; Encounter for immunization Z23 ; Major depressive disorder with single episode, in full remission F32.5 and Seborrheic keratoses L82.1 [facility] [id number] [place] [id number] August, Family history of diabetes mellitus Z83.3 ; Family history of hypothyroidism Z83.49 ; Morbid obesity due to excess calories E66.01 and Hypogonadism in male E29.1 [facility] [id number] [place] [address] August, Family history of diabetes mellitus Z83.3 [facility] [id number] [address] August, Family history of diabetes mellitus Z83.3 ; Hemangioma D18.00 ; Skin tag, acquired L91.8 ; Family history of hypothyroidism Z83.49 ; Morbid obesity due to excess calories E66.01 ; Hypogonadism in male E29.1 and Morbid obesity E66.01 [facility] [address] [address] Feb, [facility] [id number] [place] [address] Feb, 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 ; Morbid obesity due to excess calories E66.01 ; Family history of diabetes mellitus Z83.3 and Encounter for immunization Z23 [facility] [address] [place] [id number] Dec, Encounter for dental examination Z01.20 [facility] [address] [address] Sep, Facial nerve palsy G51.0 and Viral pharyngitis J02.9 [facility] [id number] [id number] August, Family history of diabetes mellitus Z83.3 ; Morbid obesity due to excess calories E66.01 ; Hypogonadism in male E29.1 and Pharyngitis due to other organism J02.8 [facility] [id number] [address] August, Family history of diabetes mellitus Z83.3 ; Morbid obesity due to excess calories E66.01 ; Hypogonadism in male E29.1 and Pharyngitis due to other organism J02.8 [facility] [address] [id number] [id number] August, Dental examination Z01.20 [facility] [address] [id number] [place] [id number] Jun, Dental examination Z01.20 [facility] [address] [facility] [id number] [address] May, [facility] [address] [place] [address] [id number] [place] [id number] May, Dental examination Z01.20 [facility] [address] [address] Jan, [facility] [address] [id number] [id number] Jan, Hypogonadism in male E29.1 [place] [id number] [place] [address] Jan, Allergic rhinitis, unspecified allergic rhinitis trigger, unspecified rhinitis seasonality J30.9 ; Encounter for immunization Z23 and Hypogonadism in male E29.[address] [id number] [place] [id number] Oct, Dental examination Z01.20 [address] [address] [address] Jul, [place] [address] [address] [place] [address] Jul, Allergic rhinitis J30.9 [place] [address] [place] [address] Jun, Allergic rhinitis J30.9 ; Family history of diabetes mellitus Z83.3 ; Family history of hypothyroidism Z83.49 and Hypogonadism in male E29.1 [facility] [id number] [address] May, Encounter for immunization Z23 [address] [id number] [place] [id number] Mar, Encounter for dental examination and cleaning without abnormal findings Z01.20 and Dental examination Z01.20 [place] [address] [place] [address] Jan, [facility] [address] [address] Jan, Encounter for immunization Z23 ; Family history of hypothyroidism Z83.49 ; Hypogonadism in male E29.1 and Family history of diabetes mellitus Z83.3 [facility] [address] [address] Jan, [facility] [address] [place] [address] Dec, [id number] [id number] August, Dental examination V72.2 [facility] [address] [place] [address] Jul, [facility] [id number] [place] [address] Jul, [facility] [address] [place] [address] May, [facility] [address] [place] [id number] May, [facility] [address] [address] May, [facility] [address] [place] [address] May, [facility] [address] [address] May, [facility] [id number] [place] [address] May, [facility] [address] [place] [id number] May, [facility] [address] [address] May, [facility] [address] [id number] [place] [address] Apr, [facility] [place] [facility] [address] [id number] [place] [address] Apr, [facility] [place] [facility] [address] [id number] [place] [address] Apr, [facility] [place] [facility] [address] [id number] [place] [address] Jan, [facility] [place] [facility] [address] [id number] [place] [address] Jan, [facility] [place] [facility] [address] [id number] [place] [address] Oct, [facility] [place] [facility] [address] [id number] [place] [address] Oct, [facility] [place] [facility] [address] [id number] [place] [address] Jul, [facility] [place] [facility] [address] [id number] [place] [address] Jul, [facility] [place] [facility] [address] [id number] [place] [address] Jul, [facility] [place] [facility] [address] [id number] [place] [address] May, [facility] [place] [facility] [address] [id number] [place] [address] May, [facility] [place] [facility] [address] [id number] [place] [address] Apr, [facility] [place] [facility] [address] [id number] [place] [address] Apr, [facility] [place] [facility] [address] [id number] [place] [address] Apr, [facility] [place] [facility] [address] [id number] [place] [address] Apr, [facility] [address] [id number] [place] [address] Apr, [facility] [address] [facility] [id number] [place] [id number] Mar, [facility] [address] [facility] [id number] [address] Mar, [facility] [address] [facility] [id number] [place] [id number] Mar, [facility] [address] [id number] [place] [address] Mar, [facility] [place] [facility] [address] [id number] [address] 16 Dec, 2012 [facility] [place] [facility] [id number] [address] 13 Dec, 2012 [facility] [place] [facility] [id number] [address] 10 Dec, 2012 [facility] [place] [facility] [address] [facility] [id number] [address] Jun, [facility] [place] [facility] [id number] [address] May, [facility] [place] [facility] [id number] [address] May, [facility] [place] [facility] [address] [facility] [id number] [place] [address] May, [facility] [place] [facility] [address] [id number] [address] May, [facility] [place] [facility] [address] [facility] [id number] [address] May, [facility] [place] [facility] [id number] [address] Mar, [facility] [place] [facility] [id number] [address] Mar, [facility] [address] [id number] [place] [id number] Jan, [facility] [place] [facility] [id number] [address] Jan, [facility] [id number] [place] [address] Oct, [facility] [place] [facility] [address] [facility] [id number] [place] [address] Sep, [facility] [place] [facility] [id number] [place] [address] Sep, [facility] [place] [facility] [address] [address] Mar, [facility] [place] [facility] [address] [address] Mar, [facility] [place] [facility] [address] [address] Feb, [facility] [place] [facility] [address] [address] Feb, [facility] [place] [facility] [address] [address] Jan, [facility] [place] [facility] [address] [address] Apr, [facility] [place] [facility] [address] [facility] [id number] [address] 18 Feb, 2010 [facility] [place] [facility] [address] [facility] [id number] [address] 15 Feb, 2010 [facility] [place] [facility] [id number] [address] 15 Feb, 2010 [facility] [place] [facility] [id number] [address] 08 Feb, 2010 [facility] [place] [facility] [address] [facility] [id number] [place] [address] Jan, IMMUNIZATIONS Vaccine Route Administration Date Status FLULAVAL QUAD 0.5ML (6 MO & UP) 2018 IM Intramuscular Feb 19, 2018 Administered SOCIAL HISTORY Never Assessed REASON FOR VISIT Blood Pressure , PT reports he wants to be checked for moles due to melanoma in the family . agustin ORTIZ, PT states he noticed he has been wiping and seeing blo od but nothing consistent. PT notes constipation -Agustin ORTIZ PLAN OF CARE VITAL SIGNS Height 61 in 2018-02-19 Weight 266.2 lbs 2018-02-19 Temperature 98.2 degrees Fahrenheit 2018-02-19 Heart Rate 79 bpm 2018-02-19 Respiratory Rate 20 2018-02-19 Oximetry on room air:93 % 2018-02-19 BMI 50.29 kg/m2 2018-02-19 Blood pressure systolic 132 mmHg 2018-02-19 Blood pressure diastolic 70 mmHg 2018-02-19 MEDICATIONS Medication Instructions Dosage Frequency Start Date End Date Duration Status MiraLax - Orally Once a day 1 packet mixed with 8 ounces of fluid 24h Jan, Feb, 30 day(s) Active Paroxetine HCl 20 mg 1 tablet in the morning 24h Active Singulair 10 mg 1 tablet 24h May, Active Depo-Testosterone 200 MG/ML Intramuscular once monthly 1 ml August, Active Syringe/Needle (Disp) 22G X 1-1/2 use to give testosterone injections Feb, Active Proctosol HC 2.5 % Rectal Twice a day 1 application to affected area 12h Jan, Feb, 30 day(s) Active Syringe 2-3 ML 3 ML as directed Jun, Active Hydrochlorothiazide 25 MG TAKE ONE TABLET BY MOUTH ONCE DAILY 90 Active RESULTS No Results PROCEDURES Procedure Date Ordered Result Body Site [facility] VISIT ESTABLISHED PATIENT Feb 19, 2018 ADMN FLU VAC NO FEE SCHED SAME DAY Feb 19, 2018 FLULAVAL QUAD 0.5ML (6 MO & UP) 2017Feb 19, 2018 SINGLE IMMUNIZATION ADMIN Feb 19, 2018 INSTRUCTIONS MEDICATIONS ADMINISTERED No Known Medications MEDICAL (GENERAL) HISTORY Type Description Date Medical History Prader- Willi Syndrome Medical History hypertension Surgical History tonsillectomy Surgical History appendectomy Surgical History testicle removal Surgical History dental surgery Hospitalization History surgeries Hospitalization History colon blockage
--- OUTSIDE RECORDS SUMMARY | 2018-11-27 06:43 | XMS REPORT ---
Author RAMON Chiang Organization [employer] Address Unknown Phone Unavailable Care Team Providers Care Cupola Melter Helper Name Role Phone RAMON LAURA CP Unavailable Allergies, Adverse Reactions, Alerts Substance Reaction Event Type N.K.D.A. Info Not Available Non Drug Allergy Problems Problem Type Condition Code Onset Dates Condition Status Problem Family history of diabetes mellitus V18.0 Active Assessment Dental examination Z01.20 Active Problem Encounter for dental examination and cleaning without abnormal findings Z01.20 Active Medications Medication Code System Code Instructions Start Date End Date Status Dosage Depo-Testosterone [facility] [address]-79 200 MG/ML Intramuscular Once a month Jun 20, 2014 1 ml Singulair [facility] [address]-88 10 MG Once a day Jun 20, 2014 1 tablet Cetirizine HCl [facility] [address]-40 10 MG Orally Once a day July 03, 2015 Dec 30, 2015 1 tablet as needed Hydrochlorothiazide [facility] [address]-72 25 MG Once a day Jun 20, 2014 1 tablet Syringe 2-3 ML NDC 0 3 ML Once a month, 23 gauge, 1 inch July 03, 2015 as directed Syringe/Needle (Disp) NDC 0 22G X 1 once a month July 28, 2015 For use with Depo-Testosterone injection Procedures Procedure Coding System Code Date BITEWINGS - FOUR FILMS CPT-4 D0274 November 14, 2015 PROPHYLAXIS - ADULT CPT-4 D1110 November 14, 2015 PERIODIC ORAL EXAMINATION CPT-4 D0120 November 14, 2015 Watch Tooth CPT-4 C0029 November 14, 2015 Watch Tooth CPT-4 C0029 November 14, 2015 TOPICAL FLUORIDE VARNISH CPT-4 D1206 November 14, 2015 Watch Tooth CPT-4 C0029 November 14, 2015 Watch Tooth CPT-4 C0029 November 14, 2015 Vital Signs Date/Time: November 14, 2015 Blood Pressure Diastolic 74 mmHg Blood Pressure Systolic 125 mmHg Results No Known Results Summary Purpose [employer] Submission
--- OUTSIDE RECORDS SUMMARY | 2018-11-27 06:43 | XMS REPORT ---
Author Author MIKE GRAY [facility] [employer] Address Unknown Phone Unavailable Care Team Providers Care Mobile Sales Assistant Name Role Phone MIKE GRAY CP Unavailable Allergies, Adverse Reactions, Alerts Substance Reaction Event Type N.K.D.A. Info Not Available Non Drug Allergy Problems Problem Type Condition Code Onset Dates Condition Status Assessment Hypogonadism in male E29.1 Active Problem Hypogonadism in male E29.1 Active Problem Encounter for dental examination and cleaning without abnormal findings Z01.20 Active Problem Allergic rhinitis, unspecified allergic rhinitis trigger, unspecified rhinitis seasonality J30.9 Active Assessment Allergic rhinitis, unspecified allergic rhinitis trigger, unspecified rhinitis seasonality J30.9 Active Assessment Encounter for immunization Z23 Active Problem Morbid obesity due to excess calories E66.01 Active Problem Family history of diabetes mellitus V18.0 Active Medications Medication Code System Code Instructions Start Date End Date Status Dosage Loratadine [facility] [address]-60 10 mg Orally Once a day Jan 29, 2016 July 27, 2016 1 tablet Singulair [facility] [address]-40 10 MG Once a day Jun 20, 2014 1 tablet Syringe 2-3 ML NDC 0 3 ML Once a month, 23 gauge, 1 inch July 03, 2015 as directed Depo-Testosterone [facility] [address]-09 200 MG/ML Intramuscular Once a month Jun 20, 2014 1 ml Syringe/Needle (Disp) NDC 0 22G X 1 once a month July 28, 2015 For use with Depo-Testosterone injection Hydrochlorothiazide [facility] [address]-38 25 MG Once a day Jun 20, 2014 1 tablet Procedures Procedure Coding System Code Date FLUARIX QUAD P-FREE 3 AND UP .50 2015 CPT-4 97383 Jan 29, 2016 SINGLE IMMUNIZATION ADMIN CPT-4 92937 Jan 29, 2016 Office Visit, Est Pt., Level 3 CPT-4 67286 Jan 29, 2016 Vital Signs Date/Time: Jan 29, 2016 Cardiac Monitoring Heart Rate 84 bpm Weight 292.8 lbs Height 61 in BMI 55.32 Index Blood Pressure Diastolic 86 mmHg Blood Pressure Systolic 126 mmHg Results No Known Results Immunizations Vaccine Administration Date FLUARIX QUAD P-FREE 3 AND UP .50 2015Jan 29, 2016 Summary Purpose [employer] Submission
--- OUTSIDE RECORDS SUMMARY | 2018-11-27 06:43 | XMS REPORT ---
Author Author MIKE GRAY Organization [employer] Address Unknown Phone Unavailable Care Team Providers Care Human Resource Intern Name Role Phone MIKE GRAY CP Unavailable Allergies No Known Allergies Problems Problem Type Condition Code Onset Dates Condition Status Problem Hypogonadism in male E29.1 Active Problem Encounter for dental examination and cleaning without abnormal findings Z01.20 Active Problem Allergic rhinitis, unspecified allergic rhinitis trigger, unspecified rhinitis seasonality J30.9 Active Problem Morbid obesity due to excess calories E66.01 Active Problem Family history of diabetes mellitus V18.0 Active Medications Medication Code System Code Instructions Start Date End Date Status Dosage Depo-Testosterone [facility] [address]-35 200 MG/ML Intramuscular Once a month Jun 20, 2014 1 ml Results No Known Results Summary Purpose [employer] Submission
--- OUTSIDE RECORDS SUMMARY | 2018-11-27 06:43 | XMS REPORT ---
Author Author MIKE GRAY Organization 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 [id number] [place] [address] Feb, 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 [id number] [place] [address] Sep, Facial nerve palsy G51.0 and Viral pharyngitis J02.9 [facility] [id number] [place] [id number] August, Family history of diabetes mellitus Z83.3 ; Morbid obesity due to excess calories E66.01 ; Hypogonadism in male E29.1 and Pharyngitis due to other organism J02.8 [facility] [address] [facility] [id number], [place] [address] August, Family history of diabetes mellitus Z83.3 ; Morbid obesity due to excess calories E66.01 ; Hypogonadism in male E29.1 and Pharyngitis due to other organism J02.8 [facility][1] [address] [id number] [place] [id number] August, Dental examination Z01.20 [facility][1] [address] [id number] [place] [id number] Jun, Dental examination Z01.20 [facility] [address], [place] [address] May, [facility][1] [address] [place] [address] [id number] [place] [id number] May, Dental examination Z01.20 [facility] [address], [place] [address] Jan, [facility] [address] [id number] [id number] Jan, Hypogonadism in male E29.1 [facility] [address], [place] [address] Jan, Allergic rhinitis, unspecified allergic rhinitis trigger, unspecified rhinitis seasonality J30.9 ; Encounter for immunization Z23 and Hypogonadism in male E29.1 [facility][1] [address] [place] [address] AVE [id number] [place] [id number] Oct, Dental examination Z01.20 [facility] [address], [place] [address] Jul, [facility] [address] [place] [address] Jul, Allergic rhinitis J30.9 [facility] [address] [address] Jun, Allergic rhinitis J30.9 ; Family history of diabetes mellitus Z83.3 ; Family history of hypothyroidism Z83.49 and Hypogonadism in male E29.1 [facility] [address], [place] [address] 12 May, 2015 Encounter for immunization Z23 [facility] [place] [facility] [id number] [place] [id number] Mar, Encounter for dental examination and cleaning without abnormal findings Z01.20 and Dental examination Z01.20 [facility] [id number] [place] [address] Jan, [place] [id number] [place] [address] Jan, Encounter for immunization Z23 ; Family history of hypothyroidism Z83.49 ; Hypogonadism in male E29.1 and Family history of diabetes mellitus Z83.3 [place] [id number] [place] [address] Jan, [facility] [id number] [place] [address] Dec, [id number] [place] [id number] August, Dental examination V72.2 [facility] [address] [place] [address] Jul, [facility] [address] [place] [address] Jul, [facility] [id number] [place] [address] May, [address] [id number] May, [facility] [address] [place] [address] May, [facility] [address] [place] [address] May, [facility] [place] [facility] [address] [id number] [place] [address] May, [facility] [place] [facility] [address] [id number] [place] [address] May, [facility] [address] [id number] [id number] May, [facility] [place] [facility] [address] [id number] [place] [address] May, [facility] [place] [facility] [address] [id number] [place] [address] Apr, [facility] [place] [facility] [address] [id number], [place] [address] Apr, [facility] [place] [facility] [address] [id number] [place] [address] Apr, [facility] [place] [facility] [address] [id number], [place] [address] Jan, [facility] [place] [facility] [address] [id number], [place] [address] Jan, [facility] [place] [facility] [address] [facility] [id number], [place] [address] Oct, [facility] [place] [facility] [address] [id number], [place] [address] Oct, [facility] [place] [facility] [address] [id number], [place] [address] Jul, [facility] [place] [facility] [address] [id number], [place] [address] Jul, [facility] [place] [facility] [address] [id number], [place] [address] Jul, [facility] [place] [facility] [address] [id number], [place] [address] May, [facility] [place] [facility] [address] [id number] [place] [address] May, [facility] [address] [id number] [place] [address] Apr, [facility] [place] [facility] [address] [id number] [place] [address] Apr, [facility] [address] [id number], [place] [address] Apr, [facility] [place] [facility] [address] [id number] [place] [address] Apr, [facility] [address] [id number] [place] [address] Apr, [facility] [address] [facility] [id number] [id number] Mar, [facility] [address] [id number], [place] [address] Mar, [facility] [address] [id number] [id number] Mar, [facility] [place] [facility] [address] [id number] [place] [address] Mar, [facility] [place] [facility] [address] [facility] [id number] [place] [address] 16 Dec, 2012 [facility] [place] [facility] [address] [id number], [place] [address] 13 Dec, 2012 [facility] [place] [facility] [address] [id number], [place] [address] 10 Dec, 2012 [facility] [place] [facility] [address] [id number] [place] [address] Jun, [facility] [place] [facility] [address] [id number] [place] [address] May, [facility] [place] [facility] [address] [id number] [place] [address] May, [facility] [place] [facility] [address] [id number] [place] [address] May, [facility] [address] [id number] [place] [address] May, [facility] [address] [facility] [id number] [place] [address] May, [facility] [address] [facility] [id number] [place] [address] Mar, [facility] [address] [facility] [id number] [place] [address] Mar, [facility] [address] [id number] [place] [id number] Jan, [facility] [address] [id number] [place] [address] Jan, [facility] [address] [id number] [place] [address] Oct, [facility] [address] [id number] [place] [address] Sep, [facility] [address] [id number] [place] [address] Sep, [facility] [address] [id number] [place] [address] Mar, [facility] [address] [id number] [place] [address] Mar, [facility] [address] [facility] [id number] [place] [address] Feb, [facility] [place] [facility] [address] [id number] [place] [address] Feb, [facility] [place] [facility] [address] [facility] [id number] [place] [address] Jan, [facility] [address] [facility] [id number] [place] [address] Apr, [facility] [address] [facility] [id number], [place] [address] Feb, [facility] [address] [facility] [id number], [place] [address] Feb, [facility] [address] [facility] [id number], [place] [address] Feb, [facility] [address] [facility] [id number], [place] [address] Feb, [facility] [address] [facility] [id number], [place] [address] Jan, IMMUNIZATIONS No Known Immunizations SOCIAL HISTORY Never Assessed REASON FOR VISIT possible BellsPalsy, started Friday, left side facial drooping, reports left ear hurting really bad "like needle in his ear". Some slurred speech and difficulty keeping food and drink in left side of mouth. Reports pain in left side upper and lower teeth. Denies weakness in extremities or vision changes. PLAN OF CARE VITAL SIGNS Height 61 in 2016-10-24 Weight 265.8 lbs 2016-10-24 Temperature 97.9 degrees Fahrenheit 2016-10-24 Heart Rate 80 bpm 2016-10-24 Respiratory Rate 22 2016-10-24 BMI 50.22 kg/m2 2016-10-24 Blood pressure systolic 146 mmHg 2016-10-24 Blood pressure diastolic 84 mmHg 2016-10-24 MEDICATIONS Medication Instructions Dosage Frequency Start Date End Date Duration Status Syringe 2-3 ML 3 ML as directed Jun, Active Syringe/Needle (Disp) 22G X 1 For use with Depo-Testosterone injection Jul, Active PredniSONE 20 mg Orally Once a day 2 tablets 24h Sep, Oct, 05 days Active Hydrochlorothiazide 25 MG 1 tablet 24h May, 90 Active Singulair 10 MG 1 tablet 24h May, Active Depo-Testosterone 200 MG/ML Intramuscular Once a month 1 ml May, Active Acyclovir 400 mg Orally Five times a day 2 tablets Sep, 07 days Active RESULTS No Results PROCEDURES No Known procedures INSTRUCTIONS MEDICATIONS ADMINISTERED No Known Medications MEDICAL (GENERAL) HISTORY Type Description Date Medical History Prader- Willi Syndrome Medical History hypertension Surgical History tonsillectomy Surgical History appendectomy Surgical History testicle removal Surgical History dental surgery Hospitalization History surgeries Hospitalization History colon blockage
--- OUTSIDE RECORDS SUMMARY | 2018-11-27 06:43 | XMS REPORT ---
Author MIKE Palma Organization [employer] Address Unknown Phone Unavailable Care Team Providers Care Co Founder And Chief Strategy Officer Name Role Phone MIKE GRAY CP Unavailable Allergies No Known Allergies Problems Problem Type Condition Code Onset Dates Condition Status Problem Family history of diabetes mellitus V18.0 Active Assessment Encounter for immunization Z23 Active Problem Encounter for dental examination and cleaning without abnormal findings Z01.20 Active Medications Medication Code System Code Instructions Start Date End Date Status Dosage Depo-Testosterone [facility] [address]-85 200 MG/ML MUST BE GENERIC Jun 20, 2014 inject 1 milliliters by Intramuscular route every 4 weeks Results No Known Results Summary Purpose [employer] Submission
--- OUTSIDE RECORDS SUMMARY | 2018-11-27 06:43 | XMS REPORT ---
Author Author MIKE GRAY Organization [employer] Address Unknown Phone Unavailable Care Team Providers Care Bakeshop Cleaner Name Role Phone MIKE GRAY CP Unavailable Allergies No Known Allergies Problems Problem Type Condition Code Onset Dates Condition Status Problem Unspecified site of ankle sprain and strain 845.00 Active Problem Dysuria 788.1 Active Problem Hematuria, unspecified 599.70 Active Problem Urinary tract infection, site not specified 599.0 Active Problem Need for prophylactic vaccination and inoculation, Influenza V04.81 Active Problem Simple or unspecified chronic serous otitis media 381.10 Active Problem Allergic rhinitis, cause unspecified 477.9 Active Problem Family history of diabetes mellitus V18.0 Active Problem Screening examination for pulmonary tuberculosis V74.1 Active Problem Abdominal pain, other specified site 789.09 Active Problem Unspecified hypertrophic and atrophic condition of skin 701.9 Active Problem Benign neoplasm of skin, site unspecified 216.9 Active Medications No Known Medications Results No Known Results Summary Purpose [employer] Submission
--- OUTSIDE RECORDS SUMMARY | 2018-11-27 06:43 | XMS REPORT ---
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 355588801838597 Problem Hypogonadism in male E29.1 Active 65758556 Problem Family history of diabetes mellitus V18.0 Active 605097788 Problem Family history of diabetes mellitus Z83.3 Active 191686329 Problem Allergic rhinitis, unspecified allergic rhinitis trigger, unspecified rhinitis seasonality J30.9 Active 00288870 ALLERGIES No Information ENCOUNTERS Encounter Location Date Diagnosis [facility] [address] [facility] [id number] [id number] August, Family history of diabetes mellitus Z83.3 ; Family history of hypothyroidism Z83.49 ; Morbid obesity due to excess calories E66.01 and Hypogonadism in male E29.1 [place] [address] [facility] [id number], [place] [address] August, Family history of diabetes mellitus Z83.3 [facility] [address] [id number], [place] [address] August, Family history of diabetes mellitus Z83.3 ; Hemangioma D18.00 ; Skin tag, acquired L91.8 ; Family history of hypothyroidism Z83.49 ; Morbid obesity due to excess calories E66.01 ; Hypogonadism in male E29.1 and Morbid obesity E66.01 [facility] [address] [facility] [id number], [place] [address] Feb, [place] [address], [place] [address] Feb, 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 ; Morbid obesity due to excess calories E66.01 ; Family history of diabetes mellitus Z83.3 and Encounter for immunization Z23 [facility] [address] [facility] [id number] [id number] Dec, Encounter for dental examination Z01.20 [facility] [address] [id number], [place] [address] Sep, Facial nerve palsy G51.0 and Viral pharyngitis J02.9 [facility] [address] [id number] [id number] August, Family history of diabetes mellitus Z83.3 ; Morbid obesity due to excess calories E66.01 ; Hypogonadism in male E29.1 and Pharyngitis due to other organism J02.8 [facility] [address] [id number], [place] [address] August, Family history of diabetes mellitus Z83.3 ; Morbid obesity due to excess calories E66.01 ; Hypogonadism in male E29.1 and Pharyngitis due to other organism J02.[address] [facility] [address] [id number] [id number] August, Dental examination Z01.[address] [place] [id number] [id number] Jun, Dental examination Z01.20 [facility] [address] [facility] [id number], [place] [address] May, [facility] [address] [id number][place] [id number] May, Dental examination Z01.20 [facility] [address] [facility] [id number], [place] [address] Jan, [facility] [address] [id number][place] [id number] Jan, Hypogonadism in male E29.1 [place] [address] [place] [id number], [place] [address] Jan, Allergic rhinitis, unspecified allergic rhinitis trigger, unspecified rhinitis seasonality J30.9 ; Encounter for immunization Z23 and Hypogonadism in male E29.[address] [id number][place] [id number] Oct, Dental examination Z01.20 [place] [address] [place] [address] Jul, [place] [address] [place] [id number] [place] [address] Jul, Allergic rhinitis J30.9 [place] [address] [place] [address] Jun, Allergic rhinitis J30.9 ; Family history of diabetes mellitus Z83.3 ; Family history of hypothyroidism Z83.49 and Hypogonadism in male E29.1 [place] [address], [place] [address] May, Encounter for immunization Z23 [address] [id number][place] [id number] Mar, Encounter for dental examination and cleaning without abnormal findings Z01.20 and Dental examination Z01.20 [place] [address], [place] [address] Jan, [place] [address] [place] [address] Jan, Encounter for immunization Z23 ; Family history of hypothyroidism Z83.49 ; Hypogonadism in male E29.1 and Family history of diabetes mellitus Z83.3 [place] [address], [place] [address] Jan, [place] [address], [place] [address] Dec, [address] [id number][place] [id number] August, Dental examination V72.2 [facility] [address], [place] [address] Jul, [facility] [place] [facility] [address], [place] [address] Jul, [facility] [address], [place] [address] May, [facility] [address] [id number] May, [facility] [address], [place] [address] May, [facility] [address] [id number], [place] [address] May, [facility] [address], [place] [address] May, [facility] [address], [place] [address] May, [facility] [address] [id number] May, [facility] [address] [id number], [place] [address] May, [facility] [address], [place] [address] Apr, [facility] [address] [id number], [place] [address] Apr, [facility] [place] [facility] [address], [place] [address] Apr, [facility] [place] [facility] [address], [place] [address] Jan, [facility] [place] [facility] [address] [id number], [place] [address] Jan, [facility] [address] [id number] [place] [address] Oct, [facility] [place] [facility] [address] [id number] [place] [address] Oct, [facility] [place] [facility] [address] [id number] [place] [address] Jul, [facility] [place] [facility] [address] [id number] [place] [address] Jul, [facility] [place] [facility] [address] [id number] [place] [address] Jul, [facility] [place] [facility] [address] [id number] [place] [address] May, [facility] [place] [facility] [address] [id number] [place] [address] May, [facility] [place] [facility] [address] [id number] [place] [address] Apr, [facility] [place] [facility] [address] [id number] [place] [address] Apr, [facility] [place] [facility] [address] [id number], [place] [address] Apr, [facility] [place] [facility] [address] [id number], [place] [address] Apr, [facility] [place] [facility] [address] [id number], [place] [address] Apr, [facility] [address] [id number] [id number] Mar, [facility] [place] [facility] [address] [id number] [place] [address] Mar, [facility] [address] [facility] [place] [id number][place] [id number] Mar, [facility] [place] [facility] [address] [id number], [place] [address] 12 Mar, 2013 [facility] [address] [id number] [place] [address] 16 Dec, 2012 [facility] [place] [facility] [address] [id number] [place] [address] 13 Dec, 2012 [facility] [address] [id number] [place] [address] 10 Dec, 2012 [facility] [place] [facility] [address] [id number] [place] [address] 04 Jun, 2012 [facility] [address] [id number] [place] [address] May, [facility] [place] [facility] [address] [id number] [place] [address] 25 May, 2012 [facility] [address] [id number] [place] [address] May, [facility] [address] [id number] [place] [address] 05 May, 2012 [facility] [address] [id number], [place] [address] May, [facility] [address] [facility] [id number] [place] [address] Mar, [facility] [address] [id number], [place] [address] Mar, [facility] [address] [id number][place] [id number] Jan, [facility] [address] [id number] [place] [address] Jan, [facility] [place] [facility] [address] [facility] [id number], [place] [address] Oct, [facility] [place] [facility] [address] [id number], [place] [address] Sep, [facility] [id number], [place] [address] 05 Sep, 2011 [facility] [address] [facility] [id number], [place] [address] Mar, [facility] [address] [facility] [id number], [place] [address] Mar, [facility] [address] [facility] [id number], [place] [address] Feb, [facility] [address] [facility] [id number], [place] [address] Feb, [facility] [address], [place] [address] Jan, [facility] [address], [place] [address] Apr, [facility] [address], [place] [address] Feb, [facility] [address], [place] [address] Feb, [facility] [address], [place] [address] Feb, [facility] [id number], [place] [address] Feb, [facility] [id number], [place] [address] Jan, IMMUNIZATIONS No Known Immunizations SOCIAL HISTORY Never Assessed REASON FOR VISIT LAB WORK [facility] PLAN OF CARE VITAL SIGNS MEDICATIONS Unknown Medications RESULTS No Results PROCEDURES Procedure Date Ordered Result Body Site ROUTINE VENIPUNCTURE 2017-09-02 N/A LAB NOT BILLED BY [facility] September 02, 2017 INSTRUCTIONS MEDICATIONS ADMINISTERED No Known Medications MEDICAL (GENERAL) HISTORY Type Description Date Medical History Prader- Willi Syndrome Medical History hypertension Surgical History tonsillectomy Surgical History appendectomy Surgical History testicle removal Surgical History dental surgery Hospitalization History surgeries Hospitalization History colon blockage
--- OUTSIDE RECORDS SUMMARY | 2018-11-27 06:43 | XMS REPORT ---
Author Author MIKE GRAY Organization [employer] Address Unknown Phone Unavailable Care Team Providers Care Fire Department Battalion Chief Name Role Phone MIKE GRAY CP Unavailable Allergies No Known Allergies Problems Problem Type Condition ICD-9 Code Onset Dates Condition Status Problem Unspecified [...] of skin, site unspecified 216.9 Active Medications Medication Code System Code Instructions Start Date End Date Status Dosage Depo-Testosterone [facility] [address]-28 200 MG/ML Jun 20, 2014 inject 1 milliliters by Intramuscular route every 4 weeks Results No Known Results Summary Purpose [employer] Submission
--- OUTSIDE RECORDS SUMMARY | 2018-11-27 06:43 | XMS REPORT ---
Author Author MIKE GRAY [facility] Address [address] [place] [address] Care Team Providers Care Track Grinder Operator Name Role Phone MIKE GRAY Unavailable PROBLEMS Type Condition ICD9-CM Code TSB82-HJ Code Onset Dates Condition Status SNOMED Code Problem Encounter for dental examination Z01.20 Active 535377878 Problem Family history of diabetes mellitus Z83.3 Active 329721997 Problem Family history of diabetes mellitus V18.0 Active 100568354 Problem Morbid obesity due to excess calories E66.01 Active 074275589 Problem Hypogonadism in male E29.1 Active 05176972 Problem Allergic rhinitis, unspecified allergic rhinitis trigger, unspecified rhinitis seasonality J30.9 Active 76135317 ALLERGIES No Known Allergies SOCIAL HISTORY Never Assessed PLAN OF CARE VITAL SIGNS Height 61 in 2016-09-05 Weight 258 lbs 2016-09-05 Temperature 98.6 degrees Fahrenheit 2016-09-05 Heart Rate 88 bpm 2016-09-05 Respiratory Rate 22 2016-09-05 BMI 48.74 kg/m2 2016-09-05 Blood pressure systolic 140 mmHg 2016-09-05 Blood pressure diastolic 90 mmHg 2016-09-05 MEDICATIONS Medication Instructions Dosage Frequency Start Date End Date Duration Status Syringe 2-3 ML 3 ML as directed Jun, Active PredniSONE 20 mg Orally Once a day 2 tablets 24h August, August, 05 days Active Syringe/Needle (Disp) 22G X 1 For use with Depo-Testosterone injection Jul, Active Depo-Testosterone 200 MG/ML Intramuscular Once a month 1 ml May, Active Amoxicillin 500 mg Orally 3 times a day 1 capsule 8h August, August, 10 day(s) Active Singulair 10 MG 1 tablet 24h May, Active Hydrochlorothiazide 25 MG 1 tablet 24h May, 90 Active RESULTS No Results PROCEDURES No Known procedures IMMUNIZATIONS No Known Immunizations MEDICAL (GENERAL) HISTORY Type Description Date Medical History Prader- Willi Syndrome Medical History hypertension Surgical History tonsillectomy Surgical History appendectomy Surgical History testicle removal Surgical History dental surgery Hospitalization History surgeries Hospitalization History colon blockage
--- OUTSIDE RECORDS SUMMARY | 2018-11-27 06:43 | XMS REPORT ---
Author Author MIKE GRAY [facility] Address [address] [place] [address] Care Team Providers Care Advertising Intern Name Role Phone MIKE GRAY Unavailable PROBLEMS Type Condition ICD9-CM Code DXP77-KY Code Onset Dates Condition Status SNOMED Code Problem Encounter for dental examination Z01.20 Active 529898106 Problem Family history of diabetes mellitus Z83.3 Active 700766286 Problem Family history of diabetes mellitus V18.0 Active 083197639 Problem Morbid obesity due to excess calories E66.01 Active 289617560 Problem Hypogonadism in male E29.1 Active 40013729 Problem Allergic rhinitis, unspecified allergic rhinitis trigger, unspecified rhinitis seasonality J30.9 Active 02319128 ALLERGIES No Information SOCIAL HISTORY Never Assessed PLAN OF CARE VITAL SIGNS MEDICATIONS No Known Medications RESULTS No Results PROCEDURES No Known procedures IMMUNIZATIONS No Known Immunizations MEDICAL (GENERAL) HISTORY Type Description Date Medical History Prader- Willi Syndrome Medical History hypertension Surgical History tonsillectomy Surgical History appendectomy Surgical History testicle removal Surgical History dental surgery Hospitalization History surgeries Hospitalization History colon blockage
--- OUTSIDE RECORDS SUMMARY | 2018-11-27 06:43 | XMS REPORT ---
Author Author MIKE GRAY [facility] Address [address] [place] [address] Care Team Providers Care Handle Attacher Name Role Phone MIKE GRAY Unavailable PROBLEMS Type Condition ICD9-CM Code XGT82-IM Code Onset Dates Condition Status SNOMED Code Problem Encounter for dental examination Z01.20 Active 867698341 Problem Family history of diabetes mellitus Z83.3 Active 990316348 Problem Family history of diabetes mellitus V18.0 Active 982237131 Problem Morbid obesity due to excess calories E66.01 Active 733676267 Problem Hypogonadism in male E29.1 Active 12368358 Problem Allergic rhinitis, unspecified allergic rhinitis trigger, unspecified rhinitis seasonality J30.9 Active 01796958 ALLERGIES No Information SOCIAL HISTORY Never Assessed PLAN OF CARE VITAL SIGNS MEDICATIONS Unknown Medications RESULTS Name Result Date Reference Range TESTOSTERONE, FREE AND TOTAL 2016-09-06 Testosterone, Serum [id number] Comment: Free Testosterone(Direct) TSH 2016-09-06 TSH 0.609 0.450-4.500 LIPID PANEL 2016-09-06 Cholesterol, Total 174 100-199 Triglycerides 67 0-149 HDL Cholesterol 38 >39 VLDL Cholesterol [facility] 13 5-40 LDL Cholesterol Calc 123 0-99 Comment: CMP 2016-09-06 Glucose, Serum 94 65-99 BUN 16 6-20 Creatinine, Serum 0.61 0.76-1.27 eGFR If NonAfricn Am 128 >59 eGFR If Africn Am 149 >59 BUN/Creatinine Ratio 26 9-20 Sodium, Serum 142 134-144 Potassium, Serum 3.6 3.5-5.2 Chloride, Serum 97 96-106 Carbon Dioxide, Total 25 18-29 Calcium, Serum 9.2 8.7-10.2 Protein, Total, Serum 6.9 6.0-8.5 Albumin, Serum 3.9 3.5-5.5 Globulin, Total 3.0 1.5-4.5 A/G Ratio 1.3 1.2-2.2 Bilirubin, Total <0.2 0.0-1.2 Alkaline Phosphatase, S 80 39-117 AST (SGOT) 14 0-40 ALT (SGPT) 19 0-44 TESTOSTERONE, FREE AND TOTAL 2016-09-06 Testosterone, Serum 519 [id number] Comment: Free Testosterone(Direct) 14.7 8.7-25.1 TSH 2016-09-06 TSH 0.609 0.450-4.500 CBC 2016-09-06 WBC 18.6 3.4-10.8 RBC 4.75 4.14-5.80 Hemoglobin 12.8 12.6-17.7 Hematocrit 38.6 37.5-51.0 MCV 81 79-97 MCH 26.9 26.6-33.0 MCHC 33.2 31.5-35.7 RDW 15.5 12.3-15.4 Platelets 342 150-379 Neutrophils 79 Lymphs 13 Monocytes 6 Eos 0 Basos 0 Neutrophils (Absolute) 14.6 1.4-7.0 Lymphs (Absolute) 2.5 0.7-3.1 Monocytes(Absolute) 1.2 0.1-0.9 Eos (Absolute) 0.0 0.0-0.4 Baso (Absolute) 0.0 0.0-0.2 Immature Granulocytes 2 Immature Grans (Abs) 0.3 0.0-0.1 LIPID PANEL 2016-09-06 Cholesterol, Total 174 100-199 Triglycerides 67 0-149 HDL Cholesterol 38 >39 VLDL Cholesterol [facility] 13 5-40 LDL Cholesterol Calc 123 0-99 CMP 2016-09-06 Glucose, Serum 94 65-99 BUN 16 6-20 Creatinine, Serum 0.61 0.76-1.27 eGFR If NonAfricn Am 128 >59 eGFR If Africn Am 149 >59 BUN/Creatinine Ratio 26 9-20 Sodium, Serum 142 134-144 Potassium, Serum 3.6 3.5-5.2 Chloride, Serum 97 96-106 Carbon Dioxide, Total 25 18-29 Calcium, Serum 9.2 8.7-10.2 Protein, Total, Serum 6.9 6.0-8.5 Albumin, Serum 3.9 3.5-5.5 Globulin, Total 3.0 1.5-4.5 A/G Ratio 1.3 1.2-2.2 Bilirubin, Total <0.2 0.0-1.2 Alkaline Phosphatase, S 80 39-117 AST (SGOT) 14 0-40 ALT (SGPT) 19 0-44 PROCEDURES Procedure Date Ordered Result Body Site [facility] September 06, 2016 VENIPUNCT, ROUTINE* September 06, 2016 IMMUNIZATIONS No Known Immunizations MEDICAL (GENERAL) HISTORY Type Description Date Medical History Prader- Willi Syndrome Medical History hypertension Surgical History tonsillectomy Surgical History appendectomy Surgical History testicle removal Surgical History dental surgery Hospitalization History surgeries Hospitalization History colon blockage
--- OUTSIDE RECORDS SUMMARY | 2018-11-27 06:44 | XMS REPORT | Continuity of Care Document ---
Author Organization Unknown Address Unknown Phone Unavailable Allergies Active Description Code Type Severity Reaction Onset Reported/Identified Relationship to Patient Clinical Status Yes No Known Drug Allergies [id number] Drug Allergy Unknown N/A 11/23/2018 Medications There is no data. Problems Date Dx Coded Attending Type Code Diagnosis Diagnosed By 10/25/2009 257.2 HYPOGONADISM 10/25/2009 278.00 OBESITY, UNSPECIFIED 10/25/2009 759.81 PRADER-WILLI SYNDROME 10/25/2009 257.2 HYPOGONADISM 10/25/2009 278.00 OBESITY, UNSPECIFIED 10/25/2009 759.81 PRADER-WILLI SYNDROME 10/25/2009 MIKE GRAY APRN 257.2 HYPOGONADISM 10/25/2009 MIKE GRAY APRN 278.00 OBESITY, UNSPECIFIED 10/25/2009 MIKE GRAY APRN 759.81 PRADER-WILLI SYNDROME 10/25/2009 257.2 HYPOGONADISM 10/25/2009 278.00 OBESITY, UNSPECIFIED 10/25/2009 759.81 PRADER-WILLI SYNDROME 10/25/2009 257.2 HYPOGONADISM 10/25/2009 278.00 OBESITY, UNSPECIFIED 10/25/2009 759.81 PRADER-WILLI SYNDROME 10/25/2009 257.2 HYPOGONADISM 10/25/2009 278.00 OBESITY, UNSPECIFIED 10/25/2009 759.81 PRADER-WILLI SYNDROME 10/25/2009 AYALA DO, GUERO K 257.2 HYPOGONADISM 10/25/2009 AYALA DO, GUERO K 278.00 OBESITY, UNSPECIFIED 10/25/2009 AYALA DO, GUERO K 759.81 PRADER-WILLI SYNDROME 10/25/2009 MIKE GRAY APRN 257.2 HYPOGONADISM 10/25/2009 MIKE GRAY APRN 278.00 OBESITY, UNSPECIFIED 10/25/2009 MIKE GRAY APRN 759.81 PRADER-WILLI SYNDROME 10/25/2009 MIKE GRAY APRN 257.2 HYPOGONADISM 10/25/2009 MARINA CLEANING MACHINE OPERATOR, MIKE T 278.00 OBESITY, UNSPECIFIED 10/25/2009 MIKE GRAY APRN T 759.81 PRADER-WILLI SYNDROME 10/25/2009 MIKE GRAY APRN 257.2 HYPOGONADISM 10/25/2009 MIKE GRAY APRN T 278.00 OBESITY, UNSPECIFIED 10/25/2009 MIKE GRAY APRN T 759.81 PRADER-WILLI SYNDROME 10/25/2009 MIKE GRAY APRN T 257.2 HYPOGONADISM 10/25/2009 MIKE GRAY APRN T 278.00 OBESITY, UNSPECIFIED 10/25/2009 MIKE GRAY APRN T 759.81 PRADER-WILLI SYNDROME 10/25/2009 CRICKET UREÑA APRN R 257.2 HYPOGONADISM 10/25/2009 CRICKET UREÑA APRN R 278.00 OBESITY, UNSPECIFIED 10/25/2009 CRICKET UREÑA APRN R 759.81 PRADER-WILLI SYNDROME 03/05/2010 599.0 Urinary Tract Infection 03/05/2010 599.0 Urinary Tract Infection 03/05/2010 MIKE GRAY APRN 599.0 Urinary Tract Infection 03/05/2010 599.0 Urinary Tract Infection 03/05/2010 599.0 Urinary Tract Infection 03/05/2010 599.0 Urinary Tract Infection 03/05/2010 GUERO AYALA DO K 599.0 Urinary Tract Infection 03/05/2010 MIKE GRAY APRN 599.0 Urinary Tract Infection 03/05/2010 MIKE GRAY APRN 599.0 Urinary Tract Infection 03/05/2010 MIKE GRAY APRN 599.0 Urinary Tract Infection 03/05/2010 MIKE GRAY APRN 599.0 Urinary Tract Infection 03/05/2010 CRICKET UREÑA APRN R 599.0 Urinary Tract Infection 03/12/2010 789.00 Abdominal Pain Unspecified Site 03/12/2010 789.00 Abdominal Pain Unspecified Site 03/12/2010 MIKE GRAY APRN 789.00 Abdominal Pain Unspecified Site 03/12/2010 789.00 Abdominal Pain Unspecified Site 03/12/2010 789.00 Abdominal Pain Unspecified Site 03/12/2010 789.00 Abdominal Pain Unspecified Site 03/12/2010 LUCY DOSERAA K 789.00 Abdominal Pain Unspecified Site 03/12/2010 MIKE GRAY APRN 789.00 Abdominal Pain Unspecified Site 03/12/2010 MIKE GRAY APRN 789.00 Abdominal Pain Unspecified Site 03/12/2010 MIKE GRAY APRN 789.00 Abdominal Pain Unspecified Site 03/12/2010 MIKE GRAY APRN 789.00 Abdominal Pain Unspecified Site 03/12/2010 CRICKET UREÑA APRN 789.00 Abdominal Pain Unspecified Site 10/24/2010 401.9 UNSPECIFIED ESSENTIAL HYPERTENSION 10/24/2010 401.9 UNSPECIFIED ESSENTIAL HYPERTENSION 10/24/2010 MIKE GRAY APRN 401.9 UNSPECIFIED ESSENTIAL HYPERTENSION 10/24/2010 401.9 UNSPECIFIED ESSENTIAL HYPERTENSION 10/24/2010 401.9 UNSPECIFIED ESSENTIAL HYPERTENSION 10/24/2010 401.9 UNSPECIFIED ESSENTIAL HYPERTENSION 10/24/2010 AYALA DO, GUERO K 401.9 UNSPECIFIED ESSENTIAL HYPERTENSION 10/24/2010 MIKE GRAY APRN 401.9 UNSPECIFIED ESSENTIAL HYPERTENSION 10/24/2010 MIKE GRAY APRN 401.9 UNSPECIFIED ESSENTIAL HYPERTENSION 10/24/2010 MIKE GRAY APRN 401.9 UNSPECIFIED ESSENTIAL HYPERTENSION 10/24/2010 MIKE GRAY APRN 401.9 UNSPECIFIED ESSENTIAL HYPERTENSION 10/24/2010 CRICKET UREÑA APRN 401.9 UNSPECIFIED ESSENTIAL HYPERTENSION 04/08/2011 465.9 ACUTE UPPER RESPIRATORY INFECTIONS OF UNSPECIFIED SITE 04/08/2011 465.9 ACUTE UPPER RESPIRATORY INFECTIONS OF UNSPECIFIED SITE 04/08/2011 MIKE GRAY APRN 465.9 ACUTE UPPER RESPIRATORY INFECTIONS OF UNSPECIFIED SITE 04/08/2011 465.9 ACUTE UPPER RESPIRATORY INFECTIONS OF UNSPECIFIED SITE 04/08/2011 465.9 ACUTE UPPER RESPIRATORY INFECTIONS OF UNSPECIFIED SITE 04/08/2011 465.9 ACUTE UPPER RESPIRATORY INFECTIONS OF UNSPECIFIED SITE 04/08/2011 AYALA DO, GUERO K 465.9 ACUTE UPPER RESPIRATORY INFECTIONS OF UNSPECIFIED SITE 04/08/2011 MIKE GRAY APRN 465.9 ACUTE UPPER RESPIRATORY INFECTIONS OF UNSPECIFIED SITE 04/08/2011 MIKE GRAY APRN 465.9 ACUTE UPPER RESPIRATORY INFECTIONS OF UNSPECIFIED SITE 04/08/2011 MIKE GRAY APRN 465.9 ACUTE UPPER RESPIRATORY INFECTIONS OF UNSPECIFIED SITE 04/08/2011 MIKE GRAY APRN 465.9 ACUTE UPPER RESPIRATORY INFECTIONS OF UNSPECIFIED SITE 04/08/2011 CRICKET UREÑA APRN 465.9 ACUTE UPPER RESPIRATORY INFECTIONS OF UNSPECIFIED SITE 10/01/2011 701.9 UNSPECIFIED HYPERTROPHIC AND ATROPHIC CONDITIONS OF SKIN 10/01/2011 701.9 UNSPECIFIED HYPERTROPHIC AND ATROPHIC CONDITIONS OF SKIN 10/01/2011 MIKE GRAY APRN 701.9 UNSPECIFIED HYPERTROPHIC AND ATROPHIC CONDITIONS OF SKIN 10/01/2011 701.9 UNSPECIFIED HYPERTROPHIC AND ATROPHIC CONDITIONS OF SKIN 10/01/2011 701.9 UNSPECIFIED HYPERTROPHIC AND ATROPHIC CONDITIONS OF SKIN 10/01/2011 701.9 UNSPECIFIED HYPERTROPHIC AND ATROPHIC CONDITIONS OF SKIN 10/01/2011 GUERO AYALA DO 701.9 UNSPECIFIED HYPERTROPHIC AND ATROPHIC CONDITIONS OF SKIN 10/01/2011 MIKE GRAY APRN 701.9 UNSPECIFIED HYPERTROPHIC AND ATROPHIC CONDITIONS OF SKIN 10/01/2011 MIKE GRAY APRN 701.9 UNSPECIFIED HYPERTROPHIC AND ATROPHIC CONDITIONS OF SKIN 10/01/2011 MIKE GRAY APRN 701.9 UNSPECIFIED HYPERTROPHIC AND ATROPHIC CONDITIONS OF SKIN 10/01/2011 MIKE GRAY APRN 701.9 UNSPECIFIED HYPERTROPHIC AND ATROPHIC CONDITIONS OF SKIN 10/01/2011 CRICKET UREÑA APRN 701.9 UNSPECIFIED HYPERTROPHIC AND ATROPHIC CONDITIONS OF SKIN 06/01/2012 381.10 OTITIS MEDIA CHRONIC SEROUS 06/01/2012 477.9 RHINITIS 06/01/2012 V18.0 FAM HX DIABETES MELLITUS 06/01/2012 MIKE GRAY APRN 381.10 OTITIS MEDIA CHRONIC SEROUS 06/01/2012 MIKE GRAY APRN 477.9 RHINITIS 06/01/2012 MIKE GRAY APRN V18.0 FAM HX DIABETES MELLITUS 06/01/2012 381.10 OTITIS MEDIA CHRONIC SEROUS 06/01/2012 477.9 RHINITIS 06/01/2012 V18.0 FAM HX DIABETES MELLITUS 06/01/2012 381.10 OTITIS MEDIA CHRONIC SEROUS 06/01/2012 477.9 RHINITIS 06/01/2012 V18.0 FAM HX DIABETES MELLITUS 06/01/2012 GUERO AYALA DO K 381.10 OTITIS MEDIA CHRONIC SEROUS 06/01/2012 GUERO AYALA DO K 477.9 RHINITIS 06/01/2012 GUERO AYALA DO K V18.0 FAM HX DIABETES MELLITUS 06/01/2012 MIKE GRAY APRN 381.10 OTITIS MEDIA CHRONIC SEROUS 06/01/2012 MIKE GRAY APRN 477.9 RHINITIS 06/01/2012 MARINA FLORENTINON, MIKE T V18.0 FAM HX DIABETES MELLITUS 06/01/2012 MARINA FRANCIS, MIKE T 381.10 OTITIS MEDIA CHRONIC SEROUS 06/01/2012 MARINA FLORENTINON, MIKE T 477.9 RHINITIS 06/01/2012 MARINA FLORENTINON, MIKE T V18.0 FAM HX DIABETES MELLITUS 06/01/2012 MIKE GRAY APRN T 381.10 OTITIS MEDIA CHRONIC SEROUS 06/01/2012 MIKE GRAY APRN T 477.9 RHINITIS 06/01/2012 MARINA FLORENTINON, MIKE T V18.0 FAM HX DIABETES MELLITUS 06/01/2012 MARINA FLORENTINON, MIKE T 381.10 OTITIS MEDIA CHRONIC SEROUS 06/01/2012 MARINA FRANCIS, MIKE T 477.9 RHINITIS 06/01/2012 MARINA FRANCIS, MIKE T V18.0 FAM HX DIABETES MELLITUS 06/01/2012 CRICKET UREÑA APRN 381.10 OTITIS MEDIA CHRONIC SEROUS 06/01/2012 CRICKET UREÑA APRN 477.9 RHINITIS 06/01/2012 CRICKET UREÑA APRN R V18.0 FAM HX DIABETES MELLITUS 01/11/2013 845.00 SPRAIN/STRAIN ANKLE 01/11/2013 V04.81 FLU SHOT 01/11/2013 AYALA DO GUERO K 845.00 SPRAIN/STRAIN ANKLE 01/11/2013 AYALA SERA STARKSA K V04.81 FLU SHOT 01/11/2013 MIKE GRAY APRN 845.00 SPRAIN/STRAIN ANKLE 01/11/2013 MIKE GRAY APRN V04.81 FLU SHOT 01/11/2013 MIKE GRAY APRN 845.00 SPRAIN/STRAIN ANKLE 01/11/2013 MIKE GRAY APRN T V04.81 FLU SHOT 01/11/2013 MIKE GRAY APRN T 845.00 SPRAIN/STRAIN ANKLE 01/11/2013 MIKE GRAY APRN V04.81 FLU SHOT 01/11/2013 MIKE GRAY APRN 845.00 SPRAIN/STRAIN ANKLE 01/11/2013 MIKE GRAY APRN V04.81 FLU SHOT 01/11/2013 CRICKET UREÑA APRN R 845.00 SPRAIN/STRAIN ANKLE 01/11/2013 CRICKET UREÑA APRN R V04.81 FLU SHOT 04/08/2013 AYALA DO, GUERO K 599.70 HEMATURIA UNSPECIFIED 04/08/2013 AYALA DO, GUERO K 788.1 DYSURIA 04/08/2013 AYALA DO, GUERO K 789.09 ABDOMINAL PAIN OTHER SPECIFIED SITE 04/08/2013 MIKE GRAY APRN 599.70 HEMATURIA UNSPECIFIED 04/08/2013 MIKE GRAY APRN 788.1 DYSURIA 04/08/2013 MIKE GRAY APRN 789.09 ABDOMINAL PAIN OTHER SPECIFIED SITE 04/08/2013 MIKE GRAY APRN 599.70 HEMATURIA UNSPECIFIED 04/08/2013 MIKE GRAY APRN 788.1 DYSURIA 04/08/2013 MIKE GRAY APRN 789.09 ABDOMINAL PAIN OTHER SPECIFIED SITE 04/08/2013 MIKE GRAY APRN 599.70 HEMATURIA UNSPECIFIED 04/08/2013 MIKE GRAY APRN 788.1 DYSURIA 04/08/2013 MIKE GRAY APRN 789.09 ABDOMINAL PAIN OTHER SPECIFIED SITE 04/08/2013 MIKE GRAY APRN 599.70 HEMATURIA UNSPECIFIED 04/08/2013 MIKE GRAY APRN 788.1 DYSURIA 04/08/2013 MIKE GRAY APRN 789.09 ABDOMINAL PAIN OTHER SPECIFIED SITE 04/08/2013 CRICKET UREÑA APRN 599.70 HEMATURIA UNSPECIFIED 04/08/2013 CRICKET UREÑA APRN R 788.1 DYSURIA 04/08/2013 CRICKET UREÑA APRN R 789.09 ABDOMINAL PAIN OTHER SPECIFIED SITE 08/02/2013 MIKE GRAY APRN 216.9 MOLE/NEVUS - SITE UNSPECIFIED 08/02/2013 MIKE GRAY APRN 216.9 MOLE/NEVUS - SITE UNSPECIFIED 08/02/2013 CRICKET UREÑA APRN 216.9 MOLE/NEVUS - SITE UNSPECIFIED 02/23/2014 MIKE GRAY APRN V04.81 FLU SHOT 02/23/2014 CRICKET UREÑA APRN V04.81 FLU SHOT 05/16/2014 CRICKET UREÑA APRN 599.0 URINARY TRACT INFECTION Procedures Code Description [place] [address] ROUTINE VENIPUNCTURE 06/01/2012 85657 TSH 06/01/2012 J1080 Testosterone Cypionate 200 mg/mL Oil 06/01/2012 60400 CMP 06/01/2012 41423 LIPID PANEL 06/01/2012 5474580 GFR CALC (RESULT ONLY) 06/01/2012 22055 CBC 06/01/2012 62468 ROUTINE VENIPUNCTURE 06/15/2012 62462 TESTOSTERONE FREE 06/16/2012 61492 UA LONG DIP 04/08/[address] ABDOMEN & PELVIS W/O CONTRAST 04/08/2013 50485 ROUTINE VENIPUNCTURE 05/14/2013 71920 TESTOSTERONE TOTAL MALES 05/14/2013 32454 TSH 05/14/2013 J1080 Testosterone Cypionate 200 mg/mL Oil 05/14/2013 05875 A1C (IN-HOUSE) 05/14/2013 30970 CBC 05/14/2013 79480 CMP 05/14/2013 96062 LIPID PANEL 05/14/2013 6149348 GFR CALC (RESULT ONLY) 05/14/2013 J1080 Testosterone Cypionate 200 mg/mL oil 06/09/2013 83477 ROUTINE VENIPUNCTURE 08/02/2013 61688 TESTOSTERONE TOTAL MALES 08/02/2013 16759 UA W/ CULTURE IF INDICATED 05/16/2014 06156 CULTURE URINE 05/16/2014 Results Test Result Range TESTOSTERONE, TOTAL - 09/02/17 09:59 TESTOSTERONE, TOTAL, MALES (ADULT), [place] 270 ng/dL 250-827 TSH - 09/02/17 09:59 TSH 1.62 mIU/L 0.40-4.50 Methicillin resistant Staphylococcus aureus (MRSA) screening culture - 11/23/18 13:45 Methicillin resistant Staphylococcus aureus (MRSA) screening culture NEG NRG Complete blood count (CBC) with automated white blood cell (WBC) differential - 11/23/18 13:50 Blood leukocytes automated count (number/volume) 15.3 10*3/uL 4.3-11.0 Blood erythrocytes automated count (number/volume) 5.73 10*6/uL 4.35-5.85 Venous blood hemoglobin measurement (mass/volume) 15.3 g/dL 13.3-17.7 Blood hematocrit (volume fraction) 46 % 40-54 Automated erythrocyte mean corpuscular volume 81 [foz_us] 80-99 Automated erythrocyte mean corpuscular hemoglobin (mass per erythrocyte) 27 pg 25-34 Automated erythrocyte mean corpuscular hemoglobin concentration measurement (mass/volume) 33 g/dL 32-36 Automated erythrocyte distribution width ratio 16.8 % 10.0- 14.5 Automated blood platelet count (count/volume) 289 10*3/uL 130-400 Automated blood platelet mean volume measurement 10.1 [foz_us] 7.4-10.4 Automated blood neutrophils/100 leukocytes 67 % 42-75 Automated blood lymphocytes/100 leukocytes 20 % 12-44 Blood monocytes/100 leukocytes 10 % 0-12 Automated blood eosinophils/100 leukocytes 2 % 0-10 Automated blood basophils/100 leukocytes 1 % 0-10 Blood neutrophils automated count (number/volume) 10.3 10*3 1.8-7.8 Blood lymphocytes automated count (number/volume) 3.1 10*3 1.0-4.0 Blood monocytes automated count (number/volume) 1.5 10*3 0.0- 1.0 Automated eosinophil count 0.4 10*3/uL 0.0-0.3 Automated blood basophil count (count/volume) 0.1 10*3/uL 0.0-0.1 Whole blood basic metabolic panel - 11/23/18 13:50 Serum or plasma sodium measurement (moles/volume) 134 mmol/L 135-145 Serum or plasma potassium measurement (moles/volume) 3.9 mmol/L 3.6-5.0 Serum or plasma chloride measurement (moles/volume) 101 mmol/L 98-107 Carbon dioxide 20 mmol/L 21-32 Serum or plasma anion gap determination (moles/volume) 13 mmol/L 5-14 Serum or plasma urea nitrogen measurement (mass/volume) 8 mg/dL 7-18 Serum or plasma creatinine measurement (mass/volume) 0.74 mg/dL 0.60-1.30 Serum or plasma urea nitrogen/creatinine mass ratio 11 NRG Serum or plasma creatinine measurement with calculation of estimated glomerular filtration rate > NRG Serum or plasma glucose measurement (mass/volume) 92 mg/dL 70-105 Serum or plasma calcium measurement (mass/volume) 9.7 mg/dL 8.5-10.1 Manual absolute plasma cell count - 11/23/18 13:50 Blood monocytes/100 leukocytes 5 % NRG Manual blood segmented neutrophils/100 leukocytes 70 % NRG Blood band neutrophils/100 leukocytes 4 % NRG Manual blood lymphocytes/100 leukocytes 18 % NRG Manual eosinophils/100 leukocytes in nose 3 % NRG Manual blood basophils/100 leukocytes 0 % NRG Blood anisocytosis detection by light microscopy SLIGHT NRG Encounters ACCT No. Visit Date/Time Discharge Status Pt. Type Provider Facility Loc./Unit Complaint [id number] 05/16/2014 12:59:00 05/16/2014 23:59:59 CLS Outpatient CRICKET UREÑA APRN [id number] 02/23/2014 14:47:00 02/23/2014 23:59:59 CLS Outpatient MARINA CLEANING MACHINE OPERATOR, MIKE Nawaf [id number] 08/02/2013 11:56:00 08/02/2013 23:59:59 CLS Outpatient MARINA FRANCIS MIKE Nawaf [id number] 06/09/2013 11:14:00 06/09/2013 23:59:59 CLS Outpatient MARINA FLORENTINONMIKE Nawaf [id number] 05/14/2013 09:16:00 05/14/2013 23:59:59 CLS Outpatient MIKE GRAY APRN Nawaf [id number] 04/08/2013 14:26:00 04/08/2013 23:59:59 CLS Outpatient LUCY STARKS GUERO K [id number] 06/15/2012 16:19:00 06/15/2012 23:59:59 CLS Outpatient MIKE GRAY APRN [id number] 06/01/2012 09:15:00 06/01/2012 23:59:59 CLS Outpatient [id number] 10/07/2011 15:06:00 10/07/2011 23:59:59 CLS Outpatient [id number] 10/07/2011 15:06:00 10/07/2011 23:59:59 CLS Outpatient [id number] 01/11/2013 14:44:00 Document Registration [id number] 11/18/2012 15:02:00 Document Registration [id number] 11/23/2018 13:04:00 11/23/2018 15:20:00 DIS Outpatient SHIVA CRISTOBAL MD [facility] PREOP LEFT NASAL MASS [id number] 11/12/2018 14:11:00 11/12/2018 23:59:59 CLS Outpatient SHIVA CRISTOBAL MD [facility] RAD LT NASAL MASS [id number] 12/29/2013 20:43:00 12/30/2013 07:00:00 DIS Outpatient [id number] 04/08/2013 16:11:00 04/08/2013 23:59:59 CLS Outpatient [id number] 12/26/2012 08:25:00 12/26/2012 09:46:00 DIS Emergency [id number] 11/27/2018 08:00:00 PEN Preadmit LEVAR BOSTON, SHIVA Saavedra [facility] SDC LEFT NASAL MASS [id number] 07/27/2018 14:20:00 07/27/2018 23:59:59 CLS Outpatient MIKE GRAY APRN [facility] [id number] 09/02/2017 09:40:00 Document Registration
--- OUTSIDE RECORDS SUMMARY | 2018-11-27 06:44 | XMS REPORT ---
Author MIKE Palma Organization [employer] Address Unknown Phone Unavailable Care Team Providers Care Payroll Clerk Name Role Phone MIKE GRAY CP Unavailable Allergies No Known Allergies Problems Problem Type Condition Code Onset Dates Condition Status Problem Family history of diabetes mellitus V18.0 Active Medications No Known Medications Results No Known Results Summary Purpose [employer] Submission
--- OUTSIDE RECORDS SUMMARY | 2018-11-27 06:44 | XMS REPORT ---
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 546235536414231 Problem Family history of diabetes mellitus Z83.3 Active 444420535 Problem Family history of diabetes mellitus V18.0 Active 188471876 Problem Morbid obesity due to excess calories E66.01 Active 729646132 Problem Hypogonadism in male E29.1 Active 51744464 Problem Allergic rhinitis, unspecified allergic rhinitis trigger, unspecified rhinitis seasonality J30.9 Active 00801295 ALLERGIES No Known Allergies ENCOUNTERS Encounter Location Date Diagnosis [facility] [id number] [place] [phone] Feb, [facility] [address] [address] Feb, 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 ; Morbid obesity due to excess calories E66.01 ; Family history of diabetes mellitus Z83.3 and Encounter for immunization Z23 [facility] [id number] [place] [id number] Dec, Encounter for dental examination Z01.20 [facility] [id number] [place] [address] Sep, Facial nerve palsy G51.0 and Viral pharyngitis J02.9 [facility] [id number] [place] [id number] August, Family history of diabetes mellitus Z83.3 ; Morbid obesity due to excess calories E66.01 ; Hypogonadism in male E29.1 and Pharyngitis due to other organism J02.8 [facility] [id number] [address] August, Family history of diabetes mellitus Z83.3 ; Morbid obesity due to excess calories E66.01 ; Hypogonadism in male E29.1 and Pharyngitis due to other organism J02.8 [facility] [address] [id number] [place] [id number] August, Dental examination Z01.20 [facility] [address] [id number] [place] [phone] Jun, Dental examination Z01.20 [facility] [address] [address] May, [facility] [address] [place] [address] [id number] [place] [phone] May, Dental examination Z01.20 [facility] [address] [address] Jan, [facility] [id number] [place] [id number] Jan, Hypogonadism in male E29.1 [facility] [address] [address] Jan, Allergic rhinitis, unspecified allergic rhinitis trigger, unspecified rhinitis seasonality J30.9 ; Encounter for immunization Z23 and Hypogonadism in male E29.1 [facility] [address] [id number] [place] [phone] Oct, Dental examination Z01.20 [facility] [address]100[place] [address] Jul, [facility] [address] [address] Jul, Allergic rhinitis J30.9 [facility] [address] [place] [address] Jun, Allergic rhinitis J30.9 ; Family history of diabetes mellitus Z83.3 ; Family history of hypothyroidism Z83.49 and Hypogonadism in male E29.1 [facility] [address] [address] May, Encounter for immunization Z23 [facility] [address] [facility] [id number] [place] [id number] Mar, Encounter for dental examination and cleaning without abnormal findings Z01.20 and Dental examination Z01.20 [facility] [id number] [place] [address] Jan, [place] [id number] [place] [address] Jan, Encounter for immunization Z23 ; Family history of hypothyroidism Z83.49 ; Hypogonadism in male E29.1 and Family history of diabetes mellitus Z83.3 [place] [id number] [place] [phone] Jan, [facility] [id number] [place] [phone] Dec, [id number] [place] [id number] August, Dental examination V72.2 [facility] [address] [address] Jul, [facility] [id number] [place] [phone] Jul, [facility] [address] [address] May, [address]100[place] [id number] May, [facility] [address] [address] May, [facility] [id number] [place] [phone] May, [facility] [place] [facility] [address] [facility] [id number] [place] [address] May, [facility] [place] [facility] [address] [facility] [id number] [place] [address] May, [facility] [address] [facility] [id number] [place] [id number] May, [facility] [place] [facility] [address] [facility] [id number] [address] May, [facility] [place] [facility] [address] [facility] [id number] [place] [address] Apr, [facility] [place] [facility] [address] [facility] [id number] [place] [address] Apr, [facility] [id number] [address] Apr, [facility] [place] [facility] [address] [id number] [address] Jan, [facility] [place] [facility] [address] [facility] [id number] [place] [address] Jan, [facility] [place] [facility] [address] [facility] [id number] [place] [address] Oct, [facility] [place] [facility] [address] [facility] [id number] [place] [address] Oct, [facility] [place] [facility] [address] [facility] [id number] [place] [address] Jul, [facility] [place] [facility] [address] [facility] [id number] [place] [address] Jul, [facility] [place] [facility] [address] [facility] [id number] [place] [address] Jul, [facility] [place] [facility] [address] [facility] [id number] [place] [address] May, [facility] [place] [facility] [address] [id number] [place] [address] May, [facility] [address] [id number] [place] [address] Apr, [facility] [address] [id number] [place] [address] Apr, [facility] [address] [id number] [place] [address] Apr, [facility] [address] [id number] [place] [address] Apr, [facility] [address] [id number] [place] [address] Apr, [facility] [address] [id number] [place] [id number] Mar, [facility] [address] [id number] [place] [address] Mar, [facility] [address] [id number] [place] [id number] Mar, [facility] [address] [id number] [place] [address] Mar, [facility] [address] [id number] [place] [address] 16 Dec, 2012 [facility] [address] [id number] [place] [address] 13 Dec, 2012 [facility] [place] [facility] [address] [id number] [place] [address] 10 Dec, 2012 [facility] [place] [facility] [address] [id number] [place] [address] Jun, [facility] [place] [facility] [address] [id number] [place] [address] May, [facility] [address] [id number] [place] [address] May, [facility] [place] [facility] [address] [id number] [place] [address] May, [facility] [place] [facility] [address] [id number] [place] [address] May, [facility] [address] [facility] [id number] [place] [address] May, [facility] [place] [facility] [address] [id number] [place] [address] Mar, [facility] [address] [facility] [id number] [place] [address] Mar, [facility] [address] [id number] [place] [id number] Jan, [facility] [address] [id number] [place] [address] Jan, [facility] [address] [id number] [place] [address] Oct, [facility] [id number] [place] [address] Sep, [facility] [id number] [place] [address] Sep, [facility] [address] [id number] [place] [address] Mar, [facility] [place] [facility] [address] [id number] [place] [address] Mar, [facility] [place] [facility] [address] [id number] [place] [address] Feb, [facility] [place] [facility] [address] [id number] [place] [address] Feb, [facility] [place] [facility] [address] [id number] [place] [address] Jan, [facility] [place] [facility] [address] [id number] [place] [address] Apr, [facility] [address] [facility] [id number] [place] [address] Feb, [facility] [address] [facility] [id number] [place] [address] Feb, [facility] [address] [facility] [id number] [place] [address] Feb, [facility] [address] [facility] [id number] [place] [address] Feb, [facility] [address] [facility] [id number] [place] [address] Jan, IMMUNIZATIONS No Known Immunizations SOCIAL HISTORY Never Assessed REASON FOR VISIT restorative PLAN OF CARE Activity Details Follow Up prn Reason:filling VITAL SIGNS Blood pressure systolic 111 mmHg 2016-09-02 Blood pressure diastolic 68 mmHg 2016-09-02 MEDICATIONS Medication Instructions Dosage Frequency Start Date End Date Duration Status Syringe/Needle (Disp) 22G X 1 For use with Depo-Testosterone injection Jul, Active Singulair 10 MG 1 tablet 24h May, Active Syringe 2-3 ML 3 ML as directed Jun, Active Hydrochlorothiazide 25 MG 1 tablet 24h May, 90 Active Depo-Testosterone 200 MG/ML Intramuscular Once a month 1 ml May, Active RESULTS No Results PROCEDURES Procedure Date Ordered Result Body Site RESIN COMPOS - 1 SURFACE POSTERIOR September 02, 2016 Billing Notes on claim September 02, 2016 INSTRUCTIONS MEDICATIONS ADMINISTERED No Known Medications MEDICAL (GENERAL) HISTORY Type Description Date Medical History Prader- Willi Syndrome Medical History hypertension Surgical History tonsillectomy Surgical History appendectomy Surgical History testicle removal Surgical History dental surgery Hospitalization History surgeries Hospitalization History colon blockage
--- OUTSIDE RECORDS SUMMARY | 2018-11-27 06:44 | XMS REPORT ---
Author Author MIKE GRAY [facility] eClinicalWorks Address Unknown Phone Unavailable Care Team Providers Care Factory Expert Name Role Phone MIKE GRAY CP Unavailable Allergies, Adverse Reactions, Alerts Substance Reaction Event Type N.K.D.A. Info Not Available Non Drug Allergy Problems Problem Type Condition Code Onset Dates Condition Status Assessment Encounter for immunization Z23 Active Assessment Family history of hypothyroidism Z83.49 Active Problem Family history of diabetes mellitus V18.0 Active Assessment Hypogonadism in male E29.1 Active Assessment Family history of diabetes mellitus Z83.3 Active Medications Medication Code System Code Instructions Start Date End Date Status Dosage Singulair [facility] [address]-95 10 mg Jun 20, 2014 1 tablet by Oral route 1 time per day Depo-Testosterone [facility] [address]-22 200 MG/ML 1 time per month Jun 20, 2014 inject 1 milliliters by Intramuscular route every 4 weeks Hydrochlorothiazide [facility] [address]-03 25 MG Once a day Jun 20, 2014 1 tablet Procedures Procedure Coding System Code Date VENIPUNCT, ROUTINE* CPT-4 35793 Feb 15, 2015 SINGLE IMMUNIZATION ADMIN CPT-4 56704 Feb 15, 2015 Office Visit, Est Pt., Level 3 CPT-4 68167 Feb 15, 2015 FLUARIX QUAD (3 & UP)-GSK-2015 CPT-4 27838 Feb 15, 2015 LIPID PANEL CPT-4 04029 Feb 15, 2015 ASSAY OF PSA, TOTAL CPT-4 79653 Feb 15, 2015 COMPREHEN METABOLIC PANEL CPT-4 12580 Feb 15, 2015 FIBRIN DEGRADATION, QUANT CPT-4 87083 Feb 15, 2015 ASSAY OF TOTAL TESTOSTERONE CPT-4 38198 Feb 15, 2015 COMPLETE CBC W/AUTO DIFF WBC CPT-4 86630 Feb 15, 2015 ASSAY THYROID STIM HORMONE CPT-4 24995 Feb 15, 2015 Vital Signs Date/Time: Feb 15, 2015 Temperature 99.0 F Weight 263.7 lbs Height 61 in BMI 49.82 Index Blood Pressure Diastolic 82 mmHg Blood Pressure Systolic 128 mmHg Cardiac Monitoring Heart Rate 88 bpm Results Name Result Date Reference Range Unit Abnormality Flag ROUTINE VENIPUNCTURE Immunizations Vaccine Administration Date FLUARIX QUAD (3 & UP)-[facility]-2014Feb 15, 2015 Summary Purpose eClinicalWorks Submission
--- OUTSIDE RECORDS SUMMARY | 2018-11-27 06:44 | XMS REPORT ---
Author Author [facility] Address [address] [place] [address] Care Team Providers Care Brine Maker Name Role Phone RAMON LAURA Unavailable PROBLEMS Type Condition ICD9-CM Code HZX52-ZH Code Onset Dates Condition Status SNOMED Code Problem Encounter for dental examination Z01.20 Active 255169028 Problem Family history of diabetes mellitus Z83.3 Active 646118255 Problem Family history of diabetes mellitus V18.0 Active 694903951 Problem Morbid obesity due to excess calories E66.01 Active 211676178 Problem Hypogonadism in male E29.1 Active 75418494 Problem Allergic rhinitis, unspecified allergic rhinitis trigger, unspecified rhinitis seasonality J30.9 Active 02504914 ALLERGIES No Known Allergies SOCIAL HISTORY Never Assessed PLAN OF CARE Activity Details Follow Up Restoratives Reason: VITAL SIGNS Blood pressure systolic 115 mmHg 2016-06-17 Blood pressure diastolic 68 mmHg 2016-06-17 MEDICATIONS Medication Instructions Dosage Frequency Start Date End Date Duration Status Singulair 10 MG 1 tablet 24h May, Active Syringe 2-3 ML 3 ML as directed Jun, Active Hydrochlorothiazide 25 MG 1 tablet 24h May, 90 Active Depo-Testosterone 200 MG/ML Intramuscular Once a month 1 ml May, Active Loratadine 10 mg Orally Once a day 1 tablet 24h Jan, Jul, 30 day(s) Active Syringe/Needle (Disp) 22G X 1 For use with Depo-Testosterone injection Jul, Active RESULTS No Results PROCEDURES Procedure Date Ordered Result Body Site PERIODIC ORAL EXAMINATION Jun 17, 2016 VERTICAL BITEWINGS - 7 TO 8 FILMS Jun 17, 2016 TOPICAL FLUORIDE VARNISH Jun 17, 2016 PROPHYLAXIS - ADULT Jun 17, 2016 IMMUNIZATIONS No Known Immunizations MEDICAL (GENERAL) HISTORY Type Description Date Medical History Prader- Willi Syndrome Medical History hypertension Surgical History tonsillectomy Surgical History appendectomy Surgical History testicle removal Surgical History dental surgery Hospitalization History surgeries Hospitalization History colon blockage
--- OUTSIDE RECORDS SUMMARY | 2018-11-27 06:44 | XMS REPORT ---
Author Author SHIVA WORTHINGTON Organization e[employer] Address Unknown Phone Unavailable Care Team Providers Care Art Installer Name Role Phone SHIVA WORTHINGTON CP Unavailable Allergies No Known Allergies Problems Problem Type Condition Code Onset Dates Condition Status Problem Hypogonadism in male E29.1 Active Problem Encounter for dental examination and cleaning without abnormal findings Z01.20 Active Problem Allergic rhinitis, unspecified allergic rhinitis trigger, unspecified rhinitis seasonality J30.9 Active Assessment Hypogonadism in male E29.1 Active Problem Morbid obesity due to excess calories E66.01 Active Problem Family history of diabetes mellitus V18.0 Active Medications No Known Medications Procedures Procedure Coding System Code Date VENIPUNCT, ROUTINE* CPT-4 94137 Jan 30, 2016 ASSAY OF TOTAL TESTOSTERONE CPT-4 56228 Jan 30, 2016 Results Name Result Date Reference Range Unit Abnormality Flag ROUTINE VENIPUNCTURE TESTOSTERONE, TOTAL ----Testosterone, Serum 187 [phone] ng/dL L Summary Purpose eClinicalWorks Submission
[2018-11-27] MEDS ORDERED: fentaNYL INJECTION 100 MCG/2 ML AMP ONE (06:55)
[2018-11-27] MEDS ORDERED: SEVOFLURANE (ULTANE) 15 ML INHAL SOLN ONE ×2 (06:55→08:52)
[2018-11-27] MEDS ORDERED: ROCURONIUM 10 MG/ML 5 ML SYRINGE IV ONE (06:55)
[2018-11-27] MEDS ORDERED: NEOSTIGMINE 3 MG/3 ML VIAL ONE (06:55)
[2018-11-27] MEDS ORDERED: LIDOCAINE PF 2% 5 ML (XYLOCAINE) VIAL ONE (06:55)
[2018-11-27] MEDS ORDERED: GLYCOPYRROLATE 0.2 MG/ML (ROBINUL) 2 ML VIAL ONE (06:55)
[2018-11-27] MEDS ORDERED: MIDAZOLAM 2 MG/2 ML (VERSED) VIAL ONE (06:55)
[2018-11-27] MEDS ORDERED: DEXAMETHASONE 10 MG/ML (DECADRON) 1 ML VIAL ONE (06:55)
[2018-11-27] MEDS ORDERED: proPOfol 200 MG/20 ML (DIPRIVAN) VIAL IV ONE (06:55)
[2018-11-27] MEDS ORDERED: ONDANSETRON 4 MG/2 ML (SDV) Z0FRAN ONE ×2 (06:55→07:10)
--- NOTE | 2018-11-27 06:57 | Progress Note-Pre Operative ---
Pre-Operative Progress Note H&P Reviewed The H&P was reviewed, patient examined and no changes noted. Date Seen by Provider: Nov 27, 2018 Time Seen by Provider: 06:45 Date H&P Reviewed: Nov 27, 2018 Time H&P Reviewed: 06:45 Pre-Operative Diagnosis: Left Intranasal Mass SHIVA CRISTOBAL MD Nov 27, 2018 06:57
[2018-11-27] MEDS ORDERED: LACTATED RINGERS 1,000 ML IV PRN (07:02)
[2018-11-27] MEDS ORDERED: SCOPOLAMINE 1.5 MG (TRANSDERM-SCOP) PATCH ONE (07:10)
[2018-11-27] MEDS ORDERED: FAMOTIDINE 20MG/2ML IV (PEPCID) ONE (07:12)
[2018-11-27] MEDS ORDERED: LIDOCAINE/EPI 1%-1:100,000 (XYLOCAINE) 20ML ONE (07:15)
[2018-11-27] MEDS ORDERED: MIDAZOLAM 2 MG/2 ML (VERSED) VIAL IVP ONE (07:15)
[2018-11-27] MEDS ORDERED: FAMOTIDINE 20MG/2ML IV (PEPCID) IV ONE ×2 (07:30)
[2018-11-27] MEDS ORDERED: SCOPOLAMINE 1.5 MG (TRANSDERM-SCOP) PATCH TOP ONE ×2 (07:30)
[2018-11-27] MEDS ORDERED: ONDANSETRON 4 MG/2 ML (SDV) Z0FRAN IV ONE ×2 (07:30)
[2018-11-27] MEDS ORDERED: PHENYLEPHRINE 0.5% NASAL SPR (NEO-SYNEPHRINE) REG ONE (07:35)
[2018-11-27] MEDS ORDERED: COCAINE HCL 4% 2 ML SYR ONE (07:48)
[2018-11-27] MEDS ORDERED: AMPICILL/SULB 1.5 GM VIAL (UNASYN) ONE (07:57)
[2018-11-27] MEDS ORDERED: AMPICILLIN/SULBACTAM INJECTION 1.5 GM in NS (IVPB) 100 ML IV ONE (08:00)
[2018-11-27] MEDS ORDERED: BSS 15 ML ONE (08:34)
[2018-11-27] MEDS ORDERED: MUPIROCIN 2% OINT 22 GM (BACTROBAN) TUBE ONE (08:34)
[2018-11-27] MEDS ORDERED: CATHETER FLUSH 10 ML SYR IV PRN (08:45)
--- NOTE | 2018-11-27 08:56 | Progress Note-Post Operative ---
Post-Operative Progess Note Surgeon (s)/Agricultural Engineering Teacher (s) Surgeon SHIVA CRISTOBAL MD Agricultural Engineering Teacher n/a Pre-Operative Diagnosis Left Intranasal Mass Post-Operative Diagnosis same Post-Op Procedure Note Date of Procedure: Nov 27, 2018 Name of Procedure Performed: EndoScopic Removal of LEft INtranasal Mass Description & Findings Description and Findings: n/a Anesthesia Type get Estimated Blood Loss minimal Packing none. Specimen(s) collected/removed left intranasal mass SHIVA CRISTOBAL MD Nov 27, 2018 08:56
[2018-11-27] MEDS ORDERED: D5 1/2 NS W/KCL 20 MEQ/L 1,000 ML IV SCH (08:57)
[2018-11-27] MEDS ORDERED: ACETAMINOPHEN 325 MG TABLET PO PRN (09:00)
[2018-11-27] MEDS ORDERED: PROMETHAZINE INJ 25 MG/ML (PHENERGAN) AMP IVP PRN (09:00)
[2018-11-27] MEDS ORDERED: HYDROcodone/APAP 5 MG/325 MG (LORTAB) TAB PO PRN (09:00)
[2018-11-27] MEDS ORDERED: ONDANSETRON 4 MG/2 ML (SDV) Z0FRAN IVP PRN (09:15)
[2018-11-27] MEDS ORDERED: morphine INJ 10 MG/ML 1ML (SYR OR VIAL) IVP ONE (09:15)
[2018-11-27] MEDS ORDERED: AMOX-355 PO (10:05)
[2018-11-27] MEDS ORDERED: HYDR-3812 PO (10:05)
--- NOTE | 2018-11-27 11:09 | Anesthesia-General Post-Op ---
General Patient Condition Mental Status/LOC: Same as Preop Cardiovascular: Satisfactory Nausea/Vomiting: Absent Respiratory: Satisfactory Pain: Controlled Complications: Absent Post Op Complications Complications None Follow Up Care/Instructions Patient Instructions None needed. Anesthesia/Patient Condition Patient Condition Patient is doing well, no complaints, stable vital signs, no apparent adverse anesthesia problems. No complications reported per nursing. POLI MILLER CRNA Nov 27, 2018 11:09
== END 2018-11-27 11:30 | disposition home or self-care (01) ==
LOC: SDC 06:35
PROVIDERS: ATTEND Otolaryngology Otolaryngology/Facial Plastic Surgery
DX: J33.9 Nasal polyp, unspecified (principal); J34.89 Other specified disorders of nose and nasal sinuses; I10 Essential (primary) hypertension; G47.33 Obstructive sleep apnea (adult) (pediatric); G43.909 Migraine, unspecified, not intractable, without status migrainosus; K58.9 Irritable bowel syndrome, unspecified; Q87.1 Congenital malformation syndromes predominantly associated with short stature; G89.29 Other chronic pain; M54.9 Dorsalgia, unspecified; F41.9 Anxiety disorder, unspecified; E66.01 Morbid (severe) obesity due to excess calories; Z68.43 Body mass index [BMI] 50.0-59.9, adult; Z99.89 Dependence on other enabling machines and devices; Z79.899 Other long term (current) drug therapy

== ENCOUNTER 2019-04-16 05:39 | Outpatient (CLI) | payer MEDICARE, MEDICAID ==
[~2019-04-16] VITALS: Ht 162 cm; Wt 124.0 kg
[~2019-04-16 05:39] MED LIST changes: +AMOX-355 PO; +HYDR-3812 PO
== END 2019-04-16 11:03 | disposition home or self-care (01) ==
LOC: PREOP 05:39
PROVIDERS: ATTEND Otolaryngology Otolaryngology/Facial Plastic Surgery
DX: Z01.818 Encounter for other preprocedural examination (principal)

== ENCOUNTER 2019-05-28 05:34 | Outpatient (CLI) | payer MEDICARE, MEDICAID ==
[~2019-05-28] VITALS: Ht 175.3 cm; Wt 124.0 kg
== END 2019-05-28 09:18 | disposition home or self-care (01) ==
LOC: PREOP 05:34
PROVIDERS: ATTEND Otolaryngology Otolaryngology/Facial Plastic Surgery
DX: Z01.818 Encounter for other preprocedural examination (principal)

== ENCOUNTER 2019-06-03 06:45 | Day surgery (SDC) | payer MEDICARE, MEDICAID ==
[~2019-06-03] VITALS: Ht 175.3 cm; Wt 124.0 kg
[2019-06-03] VITALS (8 sets, daily range): BP systolic 115–146; BP diastolic 39–93
[2019-06-03] MEDS ORDERED: LACTATED RINGERS 1,000 ML IV PRN ×2 (06:57→07:23)
[2019-06-03] MEDS ORDERED: SCOPOLAMINE 1.5 MG (TRANSDERM-SCOP) PATCH TOP ONE (07:30)
[2019-06-03] MEDS ORDERED: ONDANSETRON 4 MG/2 ML (SDV) Z0FRAN IV ONE (07:30)
[2019-06-03] MEDS ORDERED: FAMOTIDINE 20MG/2ML IV (PEPCID) IV ONE (07:30)
[2019-06-03 07:57] LABS: BASOPHILS % (AUTO) 0 % (0-10); EOSINOPHILS # (AUTO) 0.3 10^3/uL (0.0-0.3); EOSINOPHILS % (AUTO) 3 % (0-10); HEMATOCRIT 41 % (40-54); HEMOGLOBIN 13.6 G/DL (13.3-17.7); LYMPHOCYTES # (AUTO) 2.3 X 10^3 (1.0-4.0); LYMPHOCYTES % (AUTO) 23 % (12-44); MEAN CORPUSCULAR HEMOGLOBIN 26 PG (25-34); MEAN CORPUSCULAR HGB CONC 33 G/DL (32-36); MEAN CORPUSCULAR VOLUME 78 FL (80-99); MEAN PLATELET VOLUME 9.3 FL (7.4-10.4); MONOCYTES # (AUTO) 0.8 X 10^3 (0.0-1.0); MONOCYTES % (AUTO) 8 % (0-12); NEUTROPHILS # (AUTO) 6.8 X 10^3 (1.8-7.8); NEUTROPHILS % (AUTO) 66 % (42-75); PLATELET COUNT 289 10^3/uL (130-400); RED CELL DISTRIBUTION WIDTH 17.5 % (10.0-14.5); WHITE BLOOD COUNT 10.3 10^3/uL (4.3-11.0)
[2019-06-03] MEDS ORDERED: COCAINE HCL 4% 2 ML SYR ONE (08:10)
[2019-06-03] MEDS ORDERED: BSS 15 ML ONE (08:10)
[2019-06-03] MEDS ORDERED: PHENYLEPHRINE 0.5% NASAL SPR (NEO-SYNEPHRINE) REG ONE (08:10)
[2019-06-03 08:11] LABS: ALANINE AMINOTRANSFERASE 25 U/L (0-55); ALKALINE PHOSPHATASE 78 U/L (40-136); BILIRUBIN,TOTAL 0.4 MG/DL (0.1-1.0); BUN/CREATININE RATIO 19; CALCIUM 9.6 MG/DL (8.5-10.1); CARBON DIOXIDE 27 MMOL/L (21-32); CHLORIDE 103 MMOL/L (98-107); CREATININE SERUM 0.72 MG/DL (0.60-1.30); GFR ESTIMATED > 60; GLUCOSE 93 MG/DL (70-105); POTASSIUM 3.8 MMOL/L (3.6-5.0); SODIUM 139 MMOL/L (135-145); TOTAL PROTEIN 6.9 GM/DL (6.4-8.2)
[2019-06-03] MEDS ORDERED: LIDOCAINE/EPI 1%-1:100,000 (XYLOCAINE) 20ML ONE (08:11)
[2019-06-03] MEDS ORDERED: BACITRACIN OINTMENT 28 GM TUBE ONE (08:16)
[2019-06-03] MEDS ORDERED: MUPIROCIN 2% OINT 22 GM (BACTROBAN) TUBE ONE (08:25)
[2019-06-03] MEDS ORDERED: fentaNYL INJECTION 100 MCG/2 ML AMP ONE (08:28)
[2019-06-03] MEDS ORDERED: ONDANSETRON 4 MG/2 ML (SDV) Z0FRAN ONE (08:28)
[2019-06-03] MEDS ORDERED: MIDAZOLAM 2 MG/2 ML (VERSED) VIAL ONE (08:28)
[2019-06-03] MEDS ORDERED: SEVOFLURANE (ULTANE) 15 ML INHAL SOLN ONE ×2 (08:28→09:31)
[2019-06-03] MEDS ORDERED: PROPOFOL INJECTION 50 ML IV ONE (08:28)
[2019-06-03] MEDS ORDERED: ROCURONIUM 10 MG/ML 5 ML SYRINGE IV ONE (08:28)
[2019-06-03] MEDS ORDERED: LIDOCAINE PF 2% 5 ML (XYLOCAINE) VIAL ONE (08:28)
[2019-06-03] MEDS ORDERED: DEXAMETHASONE 10 MG/ML (DECADRON) 1 ML VIAL ONE (08:28)
--- NOTE | 2019-06-03 09:24 | Progress Note-Pre Operative ---
Pre-Operative Progress Note H&P Reviewed The H&P was reviewed, patient examined and no changes noted. Date Seen by Provider: Jun 03, 2019 Time Seen by Provider: 08:00 Date H&P Reviewed: Jun 03, 2019 Time H&P Reviewed: 08:00 Pre-Operative Diagnosis: Recurrent Left Intranasal Scarring with congestion SHIVA CRISTOBAL MD Jun 03, 2019 09:24
[2019-06-03] MEDS ORDERED: D5 1/2 NS W/KCL 20 MEQ/L 1,000 ML IV SCH (09:25)
--- NOTE | 2019-06-03 09:25 | Progress Note-Post Operative ---
Post-Operative Progess Note Surgeon (s)/Electronic Organ Mechanic (s) Surgeon SHIVA CRISTOBAL MD Electronic Organ Mechanic n/a Pre-Operative Diagnosis Recurrent Left Intranasal Scarring with congestion Post-Operative Diagnosis same Post-Op Procedure Note Date of Procedure: Jun 03, 2019 Name of Procedure Performed: Excision of Left Intranasal SCar with Splint Placement Description & Findings Description and Findings: n/a Anesthesia Type get Estimated Blood Loss minimal Packing none. Specimen(s) collected/removed none SHIVA CRISTOBAL MD Jun 03, 2019 09:25
[2019-06-03] MEDS ORDERED: ACETAMINOPHEN 325 MG TABLET PO PRN (09:30)
[2019-06-03] MEDS ORDERED: PROMETHAZINE INJ 25 MG/ML (PHENERGAN) AMP IVP PRN (09:30)
[2019-06-03] MEDS ORDERED: HYDROcodone/APAP 5 MG/325 MG (LORTAB) TAB PO PRN (09:30)
[2019-06-03] MEDS ORDERED: ONDANSETRON 4 MG/2 ML (SDV) Z0FRAN IVP PRN (09:45)
[2019-06-03] MEDS ORDERED: fentaNYL INJECTION 100 MCG/2 ML AMP IVP ONE (09:45)
[2019-06-03] MEDS ORDERED: HYDR-3812 PO (10:22)
[2019-06-03] MEDS ORDERED: AMOX-355 PO (10:22)
[2019-06-03] MEDS ORDERED: ACETAMINOPHEN 325 MG TABLET ONE (11:09)
== END 2019-06-03 11:30 | disposition home or self-care (01) ==
LOC: SDC 06:45
PROVIDERS: ATTEND Otolaryngology Otolaryngology/Facial Plastic Surgery
DX: L90.5 Scar conditions and fibrosis of skin (principal); J34.89 Other specified disorders of nose and nasal sinuses; I10 Essential (primary) hypertension; G47.33 Obstructive sleep apnea (adult) (pediatric); E66.9 Obesity, unspecified; G20 Parkinson's disease; Z68.41 Body mass index [BMI] 40.0-44.9, adult; Z99.89 Dependence on other enabling machines and devices; Z90.89 Acquired absence of other organs
CPT/HCPCS: 36415; 80053; 85025; 87081

== ENCOUNTER 2022-06-06 21:56 | Outpatient (CLI) | payer MEDICARE, MEDICAID ==
[~2022-06-06 21:56] MED LIST changes: +ACHD5005 PO; -HYDR-3812 PO; +MONT-40 PO; -MONT10TA24 PO; -TEST100V3 IM; +TEST100V9 IM
== END 2022-06-07 06:24 | disposition home or self-care (01) ==
LOC: SLEEP 21:56
PROVIDERS: ATTEND Nurse Practitioner Family
DX: G47.33 Obstructive sleep apnea (adult) (pediatric) (principal); G47.34 Idiopathic sleep related nonobstructive alveolar hypoventilation; R40.0 Somnolence; E66.01 Morbid (severe) obesity due to excess calories
CPT/HCPCS: 95811